=== PATIENT | male | born 1960 | race Caucasian/White ===

== ENCOUNTER 2016-05-29 15:58 | Emergency (ER) | payer OTHER ==
[~2016-05-29] VITALS: Ht 175.3 cm; Wt 115.0 kg
[~2016-05-29 15:58] MED LIST: DEPA500T3 PO; FOLI1 PO; IBUP800T23 PO; METF500 PO; OLAN5 PO; THIA100T PO
[2016-05-29 16:00] VITALS: BP 137/88; PULSE 106; RESP 16; TEMP 98.4; O2SAT 95
[2016-05-29 17:39] LABS: AUTOMATED NEUTROPHIL # 3.8 TH/MM3 (1.8-7.7); BASOPHIL # 0.1 TH/MM3 (0-0.2); EOSINOPHIL # 0.2 TH/MM3 (0-0.4); EOSINOPHIL % 2.7 % (0.0-4.0); HEMATOCRIT 39.3 % (39.0-51.0); HEMO FLAGS AUTO DIFF; LYMPH % 0.6 % (9.0-44.0); MEAN CELL VOLUME 107.4 FL (80.0-100.0); MEAN CORPUSCULAR HEMOGLOBIN 37.4 PG (27.0-34.0); MEAN CORPUSCULAR HGB CONC 34.9 % (32.0-36.0); MONO % 42.3 % (0.0-8.0); NEUT % 53.4 % (16.0-70.0); PLATELET COUNT 170 TH/MM3 (150-450); RED BLOOD COUNT 3.66 MIL/MM3 (4.50-5.90); RED CELL DISTRIBUTION WIDTH 15.2 % (11.6-17.2); WHITE BLOOD COUNT 7.2 TH/MM3 (4.0-11.0)
[2016-05-29 18:12] LABS: ALKALINE PHOSPHATASE 91 U/L (45-117); TOTAL BILIRUBIN ADULT 0.3 MG/DL (0.2-1.0)
[2016-05-29 18:17] LABS: BANDS 1 % (0-6); BASOPHILS 1 % (0-2); CORRECTED NUCLEATED RBC 1 /100 WBC (0-0); EOSINOPHILS 4 % (0-4); METAMYELOCYTES 1 % (0-1); MYELOCYTES 1 % (0-0); NEUTROPHIL # MANUAL DIFF 4.9 TH/MM3 (1.8-7.7); PLATELET ESTIMATE SMEAR NORMAL (NORMAL); PLATELET MORPHOLOGY NORMAL (NORMAL); POLYS (SEG NEUTROPHILS) 65 % (16-70); SCAN/DIFF FINAL DIFF MANUAL; TOXIC GRANULATION 1+ (NORMAL); WBC DIFF SAMPLE 100
[2016-05-29 18:18] LABS: ALT (GPT) 30 U/L (12-78); ANION GAP 15 MEQ/L (5-15); AST (GOT) 22 U/L (15-37); BICARBONATE 21.1 MEQ/L (21.0-32.0); BLOOD UREA NITROGEN 11 MG/DL (7-18); CHLORIDE 104 MEQ/L (98-107); GLOMERULAR FILTRATION RATE 103 ML/MIN (>89); POTASSIUM 3.8 MEQ/L (3.5-5.1); SODIUM (NA) 140 MEQ/L (136-145)
[2016-05-29 19:00] LABS: AMPHETAMINE, URINE NEG (NEG); BARBITURATES, URINE NEG (NEG); COCAINE, URINE NEG (NEG)
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
[2016-05-29 22:44] VITALS: BP 179/99; PULSE 93; RESP 18; TEMP 97.5; O2SAT 96
[2016-05-30 03:09] VITALS: BP 134/95; PULSE 89; RESP 18; TEMP 97.8; O2SAT 98
[2016-06-20] MEDS ORDERED: DIVA250T3 PO (08:56)
[2016-06-20] MEDS ORDERED: OLAN7.5T PO (08:56)
[2016-06-20] MEDS ORDERED: HYDR-3583 PO (08:56)
[2016-06-20] MEDS ORDERED: SERT-129 PO (08:56)
[2016-06-20] MEDS ORDERED: AMOX500C PO (08:56)
[2016-06-20] MEDS ORDERED: HYDR50CA PO ×2 (08:56→09:09)
[2016-06-20] MEDS ORDERED: ATOR10TA15 PO (09:09)
[2016-06-20] MEDS ORDERED: OLAN5TAB PO (09:09)
[2016-06-27] MEDS ORDERED: INSU-171 (15:12)
[2016-06-27] MEDS ORDERED: LANTUS2P SQ (15:12)
[2016-06-27] MEDS ORDERED: METF850T PO (15:12)
[2016-06-27] MEDS ORDERED: DULO1CAP PO (15:12)
[2016-07-12] MEDS ORDERED: CYAN1LOZ BUCCAL (09:56)
[2016-08-19] MEDS ORDERED: METF1000 PO (12:22)
[2016-08-19] MEDS ORDERED: IPRAAER INH (12:22)
[2016-08-19] MEDS ORDERED: LANTUS2P SQ (12:22)
[2016-09-11] MEDS ORDERED: CYAN1000P IM (14:34)
[2016-09-11] MEDS ORDERED: SITA1TAB2 PO (15:13)
[2016-09-11] MEDS ORDERED: ATOR20TA15 PO (15:13)
[2016-09-25] MEDS ORDERED: LANTUS2P SQ (13:31)
[2016-10-10] MEDS ORDERED: LANTUS2P SQ (13:15)
[2016-10-25] MEDS ORDERED: INSU-150 (13:03)
[2016-10-25] MEDS ORDERED: LANTUS2P SQ (13:20)
[2016-10-25] MEDS ORDERED: IPRAAER INH (13:37)
[2016-10-31] MEDS ORDERED: CANA100T PO (13:29)
[2016-10-31] MEDS ORDERED: LANTUS2P SQ (13:29)
[2016-11-06] MEDS ORDERED: CYAN1000P IM (13:37)
[2016-11-06] MEDS ORDERED: CANA300T PO (13:37)
[2016-11-06] MEDS ORDERED: LANTUS2P SQ (13:37)
[2016-11-06] MEDS ORDERED: INSU1MIS15 (13:37)
[2016-11-06] MEDS ORDERED: CELE100C PO (13:42)
[2016-11-06] MEDS ORDERED: SALM50I INH (13:46)
== END 2016-05-30 05:19 ==
LOC: NEDAMB 15:58 → NEPJ 05-30 05:19
DX: F31.9 Bipolar disorder, unspecified (principal); F41.8 Other specified anxiety disorders; Z72.0 Tobacco use; Z86.73 Personal history of transient ischemic attack (TIA), and cerebral infarction without residual deficits
CPT/HCPCS: 80053; 80307; 80320; 85007; 85027; 99285

== ENCOUNTER 2016-11-18 13:38 | Inpatient (IN) | payer MEDICAID, OTHER ==
[~2016-11-18] VITALS: Ht 172.7 cm; Wt 121.3 kg
[~2016-11-18 13:38] MED LIST changes: +ATOR20TA15 PO; +CANA300T PO; +CELE100C PO; +CYAN1000P IM; -DEPA500T3 PO; +DIVA250T3 PO; +DULO1CAP PO; -FOLI1 PO; +HYDR50CA PO; -IBUP800T23 PO; +INSU-150; +INSU1MIS15; +LANTUS2P SQ; +METF1000 PO; -METF500 PO; -OLAN5 PO; +SALM50I INH; +SERT-129 PO; -THIA100T PO
[2016-11-18 13:40] VITALS: BP 152/96; PULSE 95; RESP 20; TEMP 97.9; O2SAT 97
--- NOTE | 2016-11-18 14:55 | PD ---
Physical Exam Time Seen by Provider: 14:51 Narrative 56yo M c/o SI and HI. Sent by Justin Resendiz for evaluation. Hx PTSD. Reports heavy alcohol use for the past 2-3 weeks. Says he was going to shoot himself in the head last night but could not find the bullets, so drank so much alcohol he passed out. Patient seen in triage. Awaiting bed placement. VS reviewed. Data Data Last Documented VS Vital Signs Date Time Temp Pulse Resp B/P Pulse Ox O2 Delivery O2 Flow Rate FiO2 11/18/16 13:40 97.9 95 20 152/96 97 Room Air MDM Supervised Visit with NORMAN: Krystal Cowart Nov 18, 2016 14:55
[2016-11-18 15:31] LABS: BASOPHIL % 0.7 % (0.0-2.0); EOSINOPHIL # 0.4 TH/MM3 (0-0.4); EOSINOPHIL % 5.1 % (0.0-4.0); HEMATOCRIT 43.8 % (39.0-51.0); HEMO FLAGS DIFF FINAL; LYMPH % 30.7 % (9.0-44.0); LYMPHOCYTE # 2.1 TH/MM3 (1.0-4.8); MEAN CELL VOLUME 99.8 FL (80.0-100.0); MEAN CORPUSCULAR HEMOGLOBIN 33.9 PG (27.0-34.0); MONO % 6.3 % (0.0-8.0); NEUT % 57.2 % (16.0-70.0); PLATELET COUNT 158 TH/MM3 (150-450); RED BLOOD COUNT 4.39 MIL/MM3 (4.50-5.90); RED CELL DISTRIBUTION WIDTH 14.9 % (11.6-17.2)
[2016-11-18 15:33] LABS: AMPHETAMINE, URINE NEG (NEG); BARBITURATES, URINE NEG (NEG); COCAINE, URINE NEG (NEG)
[2016-11-18 15:53] LABS: ANION GAP 12 MEQ/L (5-15); AST (GOT) 23 U/L (15-37); BICARBONATE 23.1 MEQ/L (21.0-32.0); BLOOD UREA NITROGEN 13 MG/DL (7-18); CHLORIDE 101 MEQ/L (98-107); GLOMERULAR FILTRATION RATE 81 ML/MIN (>89); POTASSIUM 3.6 MEQ/L (3.5-5.1); SODIUM (NA) 136 MEQ/L (136-145)
[2016-11-18 15:55] LABS: ALKALINE PHOSPHATASE 107 U/L (45-117); ALT (GPT) 36 U/L (12-78); TOTAL BILIRUBIN ADULT 0.4 MG/DL (0.2-1.0)
[2016-11-18 18:52] VITALS: BP 151/76; PULSE 92; RESP 20; O2SAT 97
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
[2016-11-18] MEDS ORDERED: INSULIN HUMAN REGULAR 1,000 UNITS/10 ML VIAL SQ ONE (19:30)
[2016-11-18] MEDS ORDERED: LANTUS2P SQ (19:37)
[2016-11-18 22:00] VITALS: BP 181/96; PULSE 92; RESP 20; TEMP 96.7; O2SAT 96
[2016-11-19 02:00] VITALS: BP 114/63; PULSE 78; RESP 18; TEMP 97.5; O2SAT 96
[2016-11-19] MEDS ORDERED: ACETAMINOPHEN 325 MG TAB PO PRN ×2 (03:00→15:45)
[2016-11-19] MEDS ORDERED: diphenhydrAMINE HCL 50 MG/ML VIAL IM PRN (03:00)
[2016-11-19] MEDS ORDERED: MAGNESIUM HYDROXIDE SUSP 30 ML CUP PO PRN ×2 (03:00→15:45)
[2016-11-19] MEDS ORDERED: diphenhydrAMINE HCL 50 MG CAP PO PRN (03:00)
[2016-11-19] MEDS ORDERED: ALUMINUM/MAGNESIUM/SIMETH 30 ML CUP PO PRN ×2 (03:00→15:45)
[2016-11-19] MEDS ORDERED: diphenhydrAMINE HCL 50 MG CAP - HS PRN PO (03:00)
[2016-11-19] MEDS ORDERED: diphenhydrAMINE HCL 50 MG/ML VIAL - HS PRN IM (03:00)
[2016-11-19] MEDS ORDERED: hydrOXYzine HCL 50 MG TAB PO PRN (03:00)
[2016-11-19 05:40] VITALS: BP 130/80; PULSE 84; RESP 20; TEMP 97; O2SAT 96
[2016-11-19] MEDS: INVOKANA 300 MG PO SCH (07:00)
[2016-11-19] MEDS: NICOTINE 21 MG/24 HR PATCH T-DERMAL SCH (09:00)
[2016-11-19] MEDS: INSULIN DETEMIR 100 UNITS/ML VIAL SQ SCH ×2 (09:00→20:46)
[2016-11-19] MEDS ORDERED: DEXTROSE 50% IN WATER 50 ML VIAL(D50) IV PRN (14:00)
[2016-11-19] MEDS ORDERED: GLUCAGON 1 MG/ML VIAL OTHER PRN (14:00)
[2016-11-19 15:30] VITALS: BP 137/84; PULSE 82; RESP 18; TEMP 96.9; O2SAT 93
[2016-11-19] MEDS ORDERED: NON-FORMULARY DRUG (Canagliflozin (Invokana) 300 MG) PO SCH (15:45)
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
[2016-11-19] MEDS: INSULIN ASPART SUPPLEMENTAL SCALE SQ SCH ×2 (16:09→20:47)
--- NOTE | 2016-11-19 16:59 | PD.CONS ---
HPI Service [place] [facility] Consult Requested By Psychiatry team Reason for Consult Medical management Primary Care Physician Maura Gómez MD Diagnoses: History of Present Illness Written by Nelia Clemente, acting as scribe for Dr. Berger on 11/19/16 at 16: 36. Patient is a 56-year-old male with primary medical history of DM 2, hypertension, chronic back pain, depression, anxiety, COPD came into the hospital for suicidal ideation evaluation. Patient states that for about several years now he has been low and depressed and has previously attempted to jump off the bridge and commit suicide. States that 32 years has been struggling with depression because all of his love ones have and recently about a year ago he was in a relationship and the person . This time he thought of killing himself by drinking alcohol to have courage. He took vodka and got his friend's garden which he knew it was loaded hold that under his chin but the moment he pulled the trigger it did not go off. He started to realize that he needs to help so he went to see his psychologist/counselor which convinced him to admit himself for inpatient psychiatry. He is admitted to inpatient psychiatry for further evaluation. Consulted for medical management. Patient seen and examined today. Reports he continues to be depressed and feeling low. States he has been drinking half a gallon of vodka because he states "they say this can worsen his organs more, make him sicker." Complaints of acid reflux, midepigastric pain, aggravated by palpation, nonradiating. Also complains of shortness of breath especially when laying down , states that he hasn't have his inhalers right now that he used to have prior to being admitted. He takes it twice a day but cannot remember the name. Patient reports hallucination seeing a white woman who talks to him in his mind but doesn't talk in person. States he feels like cold air when the woman appears. Otherwise, denies chest pain, palpitations, headaches, dizziness. Denies fevers, chills, n/v/d. Denies dysuria. Review of Systems Except as stated in HPI: all other systems reviewed are Neg Past Family Social History Allergies: Coded Allergies: Chicken Meat (Verified Adverse Reaction, Severe, Nausea/Vomiting, 11/19/16) White Fish (Verified Adverse Reaction, Severe, Nausea/Vomiting, 11/19/16) PATIENT STATES "FISH" UPSETS HIS STOMACH. NAUSEA AND VOMITING. PATIENT STATES NOT ALLERGIC TO CHICKEN, TURKEY OR FISH SIDE EFFECT FROM EATING IT. [place] (Verified Adverse Reaction, Unknown, Nausea/Vomiting, 11/19/16) Past Medical History Diabetes 2 HTN Chronic back pain Depression Anxiety Bipolar COPD Past Surgical History Left eye surgery secondary to trauma Reported Medications Reported Meds & Active Scripts Active Serevent Diskus Inh (Salmeterol Xinafoate) 50 Mcg/Act Aero 50 Mcg INH BID Celebrex (Celecoxib) 100 Mg Cap 100 Mg PO BID Invokana (Canagliflozin) 300 Mg Tab 300 Mg PO DAILY Take before 1st meal of day. Cyanocobalamin Inj (Cyanocobalamin) 1,000 Mcg/Ml Inj 1,000 Mcg IM MONTHLY Reported Lantus Inj (Insulin Glargine) 1,000 Unit/10 Ml Vial 25 Units SQ BID Active Ordered Medications Current Medications Medications (Trade) Dose Ordered Sig/Grzegorz Route Start Time Stop Time Status Last Admin Patient Own Medication PT OWN MED: INVOK... DAILY@07 PO 11/19/16 07:00 (Atarax) 50 mg Q6H PRN PO 11/19/16 03:00 (Benadryl) 50 mg Q6H PRN PO 11/19/16 03:00 (Benadryl Inj) 50 mg Q6H PRN IM 11/19/16 03:00 (Benadryl) 50 mg HS PRN PO 11/19/16 03:00 (Benadryl Inj) 50 mg HS PRN IM 11/19/16 03:00 (Tylenol) 650 mg Q4H PRN PO 11/19/16 03:00 (Milk Of Magnesia Liq) 30 ml DAILY PRN PO 11/19/16 03:00 (Mag-Al Plus Susp Liq) 30 ml Q6H PRN PO 11/19/16 03:00 (Habitrol 21 Mg Patch.24 Hr) 1 patch DAILY T-DERMAL 11/19/16 09:00 Miscellaneous Information 1 HS T-DERMAL 11/19/16 21:00 (Levemir Inj) 25 units BID SQ 11/19/16 09:00 11/19/16 09:00 (D50w (Vial) Inj) 50 ml UNSCH PRN IV 11/19/16 14:00 (Glucagon Inj) 1 mg UNSCH PRN OTHER 11/19/16 14:00 (CeleBREX) 100 mg BID PO 11/19/16 21:00 (Serevent Diskus Inh) 50 mcg BID INH 11/19/16 21:00 (Depakote Er) 500 mg BID PO 11/19/16 21:00 (ZyPREXA) 5 mg HS PO 11/19/16 21:00 Family History Mother is suicidal Social History Patient lives with 2 women as roommates, on disability Reports alcohol use half a gallon of vodka every other week Smokes half a pack per day, restarted smoking 3 weeks ago. Denies illicit drug use Physical Exam Vital Signs Vital Signs Date Time Temp Pulse Resp B/P Pulse Ox O2 Delivery O2 Flow Rate FiO2 11/19/16 15:30 96.9 82 18 137/84 93 11/19/16 05:40 97.0 84 20 130/80 96 11/19/16 02:00 97.5 78 18 114/63 96 Room Air 11/18/16 22:00 96.7 92 20 181/96 96 Room Air 11/18/16 18:52 92 20 151/76 97 Room Air Physical Exam GENERAL: This is a well-nourished, well-developed patient, in no apparent distress. SKIN: No rashes, ecchymoses or lesions. Warmand dry. HEAD: Normocephalic. No temporal or scalp tenderness. EYES: Pupils equal round and reactive. Extraocular motions intact. No scleral icterus. No injection or drainage. ENT: Nose without bleeding. Throat without erythema. Uvula midline. Airway patent. NECK: Trachea midline. No JVD or lymphadenopathy. CARDIOVASCULAR: Regular rate and rhythm without murmurs, gallops, or rubs. RESPIRATORY: Diminished bases. No wheezes, rales, or rhonchi. GASTROINTESTINAL: Abdomen soft, non-tender, nondistended. Bowel sounds active 4 MUSCULOSKELETAL: Extremities without clubbing, cyanosis, or edema. No joint tenderness, effusion, or edema noted. No calf tenderness. Negative Homans sign bilaterally. NEUROLOGICAL: Awake and alert. Oriented to person, place, time. Motor and sensory grossly within normal limits. Normal speech. Result Diagram: 6/26/17 1510 6/26/17 1510 Assessment and Plan Problem List: (1) COPD (chronic obstructive pulmonary disease) ICD Code: J44.9 Status: Chronic (2) Chronic low back pain ICD Code: M54.5 Status: Chronic (3) Depression with suicidal ideation ICD Code: F32.9 Status: Acute (4) Hyperlipidemia, unspecified ICD Code: E78.5 Status: Chronic (5) Alcohol abuse, unspecified ICD Code: F10.10 Status: Chronic (6) Type 2 diabetes mellitus with peripheral vascular disease ICD Code: E11.51 Status: Chronic Assessment and Plan Patient is a 56-year-old male with primary medical history of DM 2, hypertension, chronic back pain, depression, anxiety, COPD came into the hospital for suicidal ideation evaluation. Patient states that for about several years now he has been low and depressed and has previously attempted to jump off the bridge and commit suicide. States that 32 years has been struggling with depression because all of his love ones have and recently about a year ago he was in a relationship and the person . This time he thought of killing himself by drinking alcohol to have courage. He took vodka and got his friend's garden which he knew it was loaded hold that under his chin but the moment he pulled the trigger it did not go off. He started to realize that he needs to help so he went to see his psychologist/counselor which convinced him to admit himself for inpatient psychiatry. He is admitted to inpatient psychiatry for further evaluation. Consulted for medical management. Depression, anxiety, suicidal ideation - Managed by psychiatry team COPD, not in exacerbation - Continue Serevent BID, Ventolin PRN - Monitor respiratory status DM 2 - Restart Lantus, convert the Levemir - May restart on home medication Invokana may skip this if the patient doesn 't have it. May continue use of Invokana when he goes home. - Metformin 1000mg BID - Check hemoglobin A1c. Monitor BG levels. Monitor for hypoglycemia. Chronic back pain - Continue Celebrex HTN, history - Not on any medication. - If BP elevation noted patient may start on low-dose lisinopril 10 mg daily. - Monitor BP trend - Check lipid panel Tobacco abuse - Counseled. Willing to stop smoking. - Nicotine patch Alcohol abuse Dyspepsia, GERD - Counseled on alcohol use - Monitor for withdrawals, Ativan when necessary - Pantoprazole 40 mg daily DVT prop ambulatory Thank you for this consultation. We will follow patient with you. Code Status Full code Discussed Condition With Patient, nursing This note was transcribed by kenrick Clemente. I, Dr. Baljinder Berger personally performed the history, physical exam, and medical decision making; and confirmed the accuracy of the information in the transcribed note. Authenticated by Dr. Baljinder Berger on 11/19/16 at 16:36. Nelia Dalton Nov 19, 2016 16:59 Baljinder Berger DO Nov 19, 2016 17:41
[2016-11-19] MEDS ORDERED: ALBUTEROL SULFATE 90 MCG/ACT HFA 8 GM INHALER INH PRN (17:30)
[2016-11-19] MEDS ORDERED: ALBUTEROL SULFATE 90 MCG/ACT HFA 18 GM INHALER INH PRN (18:15)
[2016-11-19] MEDS: PANTOPRAZOLE SOD 40 MG DELAYED RELEASE TAB PO SCH (18:28)
[2016-11-19] MEDS: metFORMIN HCL 500 MG TAB PO SCH (18:28)
[2016-11-19] MEDS: OLANZapine 5 MG TAB PO SCH (20:42)
[2016-11-19] MEDS: DIVALPROEX SODIUM E.R. 500 MG TAB PO SCH (20:42)
[2016-11-19] MEDS: REMOVE OLD NICOTINE PATCH T-DERMAL SCH (20:50)
[2016-11-19] MEDS ORDERED: INSULIN DETEMIR 100 UNITS/ML VIAL SQ SCH (21:00)
[2016-11-19] MEDS: SALMETEROL XINAFOATE 50 MCG DISKUS INH SCH (21:29)
[2016-11-19] MEDS: CELECOXIB 100 MG CAP PO SCH (21:29)
[2016-11-20 05:43] VITALS: BP 104/64; PULSE 82; RESP 16; O2SAT 99
[2016-11-20] MEDS: INSULIN ASPART SUPPLEMENTAL SCALE SQ SCH ×4 (06:29→21:56)
[2016-11-20 06:53] VITALS: TEMP 98.1
[2016-11-20] MEDS: INVOKANA 300 MG PO SCH (07:00)
[2016-11-20 08:51] LABS: AUTOMATED NEUTROPHIL # 3.3 TH/MM3 (1.8-7.7); BASOPHIL % 0.5 % (0.0-2.0); EOSINOPHIL # 0.3 TH/MM3 (0-0.4); EOSINOPHIL % 5.3 % (0.0-4.0); HEMATOCRIT 42.7 % (39.0-51.0); HEMO FLAGS DIFF FINAL; LYMPH % 32.1 % (9.0-44.0); LYMPHOCYTE # 1.9 TH/MM3 (1.0-4.8); MEAN CELL VOLUME 99.2 FL (80.0-100.0); MEAN CORPUSCULAR HEMOGLOBIN 34.3 PG (27.0-34.0); MEAN CORPUSCULAR HGB CONC 34.6 % (32.0-36.0); MONO % 5.7 % (0.0-8.0); NEUT % 56.4 % (16.0-70.0); PLATELET COUNT 148 TH/MM3 (150-450); RED CELL DISTRIBUTION WIDTH 14.7 % (11.6-17.2); WHITE BLOOD COUNT 5.9 TH/MM3 (4.0-11.0)
[2016-11-20] MEDS: NICOTINE 21 MG/24 HR PATCH T-DERMAL SCH (09:00)
--- NOTE | 2016-11-20 09:54 | PD.CONS ---
Provisional Diagnosis Admission Date Nov 19, 2016 at 02:41 [place] I. 1. Schizoaffective disorder, bipolar type [place] II. Deferred [place] V. GAF is 30 presently History of Present Illness Service Psychiatry Consult Requested By Dr. Tsang Reason for Consult Second opinion Primary Care Physician Maura Gómez MD HPI From Dr. Tsang's H&P: Patient is a 56-year-old white male comes here under [place]olan act signed by Jakob Roth at [facility] dated November 18 10:15 PM the document reviewed and agreed with basically stating patient had intention of using a gun to shoot kill himself without treatment may attempt self harm. Patient seen screened in the ED urine toxicology negative blood alcohol level negative. Of interest the patient was hospitalized here in January [address] Crane the diagnosis of adjustment disorder, impulse control disorder, and discharged on Depakote and Zyprexa. Since then the patient has been homeless for a period of time noncompliant with medications. He states he had a difficult time paying for his medications. He more recently was seen by clinician at [facility] emission the thoughts of suicide the increased auditory or visual hallucinations of multiple different people. That clinician felt he needed inpatient hospitalization and patient was transferred to this facility. Patient sitting quietly in his room medical student Hansel present throughout session. Patient did remember me from prior contact. [place]. He does have some insight into his need for stabilization on his medication though is doing so rationalization related to his issues. He states he had said episode of some increase alcohol abuse last drink being about 3 or 4 days ago. Those vital signs are stable. At the present time patient meets criteria for involuntary psychiatric hospitalization I will do first opinion requests second.. I feel is capacity to sign for his medications and is willing to do that. We will the hospitalist consult was related to his diabetes no medical issues. We'll continue medication per the med reconciliation adding Depakote 500 mg twice a day and Zyprexa 5 mg at at bedtime. Hopeless to be fairly short stay turned to his home to follow-up outpatient [facility] act On my examination today: Patient seen and examined with nurse. Chart reviewed. Case discussed with nursing staff. On my examination today, the patient reports chronic suicidal ideation worse over the last year or so. He says that he has been drinking heavily in the last 3 weeks in the hopes that this will end his life. He says that recently he has been contemplating shooting himself with his friend's gun. He endorses auditory hallucinations conversing with each other although he does not describe any command auditory hallucinations. No delusions. Affect dysphoric. No hypomanic or manic symptoms. The remainder of the psychiatric ROS is negative. Past psychiatric history: Patient reports a history of schizoaffective disorder. He follows at [facility]. His most recent psychiatric admission was at [facility]. He endorses a history of suicide attempts by trying to jump off of a bridge. Family history: The patient reports a history of depression in his mother. Chemical dependency history: The patient endorses a history of abuse of drugs or alcohol. Social history: The patient reports that he is . He has no children. He has an eighth grade education. He reports that his disability income has recently initiated. Review of Systems ROS Limitations: Psychotic Except as stated in HPI: all other systems reviewed are Neg Past Family Social History Coded Allergies: Chicken Meat (Verified Adverse Reaction, Severe, Nausea/Vomiting, 11/19/16) White Fish (Verified Adverse Reaction, Severe, Nausea/Vomiting, 11/19/16) PATIENT STATES "FISH" UPSETS HIS STOMACH. NAUSEA AND VOMITING. PATIENT STATES NOT ALLERGIC TO CHICKEN, TURKEY OR FISH SIDE EFFECT FROM EATING IT. [place] (Verified Adverse Reaction, Unknown, Nausea/Vomiting, 11/19/16) Past Medical History See electronic medical record Active Scripts Salmeterol Inh (Serevent Diskus Inh)50 Mcg/Act Aero50 Mcg INH BID #1 INHALER Ref 2 Prov:Maura Gómez MD 11/06/16 Celecoxib (Celebrex)100 Mg Tea898 Mg PO BID #30 CAP Ref 0 Prov:Maura Gómez MD 11/06/16 Canagliflozin (Invokana)300 Mg Ile114 Mg PO DAILY #30 TAB Ref 3 Take before 1st meal of day. Prov:Maura Gómez MD 11/06/16 Cyanocobalamin Inj 1,000 Mcg/Ml Inj1,000 Mcg IM MONTHLY #1 VIAL Ref 3 Prov:Maura Gómez MD 11/06/16 Reported Medications Insulin Glargine Inj (Lantus Inj)1,000 Unit/10 Ml Vial25 Units SQ BID Ref 0 11/18/16 Discontinued Reported Medications Hydroxyzine Pamoate 50 Mg Cap50 Mg PO HS Ref 0 06/20/16 Divalproex ER 250 Mg Shzmg535 Mg PO DAILY #30 TAB Ref 0 06/20/16 Sertraline 100 Mg Xsy975 Mg PO DAILY #30 TAB Ref 0 06/20/16 Discontinued Scripts Insulin Glargine Inj (Lantus Inj)1,000 Unit/10 Ml Vial35 Units SQ BID #1 VIAL Ref 1 Prov:Maura Gómez MD 11/06/16 Atorvastatin 20 Mg Tab20 Mg PO HS #30 TAB Ref 3 Prov:Maura Gómez MD 09/11/16 Metformin 1,000 Mg Tab1,000 Mg PO BIDPC #60 TAB Ref 2 With meals Prov:Maura Gómez MD 08/19/[address] 20 Mg Capdr20 Mg PO DAILY #30 CAP Ref 0 Prov:Maura Gómez MD 06/27/16 Current Medications Medications (Trade) Dose Ordered Sig/Grzegorz Route Start Time Stop Time Status Last Admin Patient Own Medication PT OWN MED: INVOK... DAILY@07 PO 11/19/16 07:00 (Atarax) 50 mg Q6H PRN PO 11/19/16 03:00 (Benadryl) 50 mg Q6H PRN PO 11/19/16 03:00 (Benadryl Inj) 50 mg Q6H PRN IM 11/19/16 03:00 (Benadryl) 50 mg HS PRN PO 11/19/16 03:00 11/19/16 21:29 (Benadryl Inj) 50 mg HS PRN IM 11/19/16 03:00 (Tylenol) 650 mg Q4H PRN PO 11/19/16 03:00 (Milk Of Magnesia Liq) 30 ml DAILY PRN PO 11/19/16 03:00 (Mag-Al Plus Susp Liq) 30 ml Q6H PRN PO 11/19/16 03:00 (Habitrol 21 Mg Patch.24 Hr) 1 patch DAILY T-DERMAL 11/19/16 09:00 Miscellaneous Information 1 HS T-DERMAL 11/19/16 21:00 (Levemir Inj) 25 units BID SQ 11/19/16 09:00 11/19/16 20:46 (D50w (Vial) Inj) 50 ml UNSCH PRN IV 11/19/16 14:00 (Glucagon Inj) 1 mg UNSCH PRN OTHER 11/19/16 14:00 (CeleBREX) 100 mg BID PO 11/19/16 21:00 11/19/16 21:29 (Serevent Diskus Inh) 50 mcg BID INH 11/19/16 21:00 11/19/16 21:29 (Depakote Er) 500 mg BID PO 11/19/16 21:00 11/19/16 20:42 (ZyPREXA) 5 mg HS PO 11/19/16 21:00 11/19/16 20:42 (Glucophage) 1,000 mg BIDPC PO 11/19/16 18:00 11/19/16 18:28 (Protonix) 40 mg DAILY PO 11/19/16 17:30 12/03/16 17:29 11/19/16 18:28 (Ventolin Hfa Inh) 2 puff Q6H PRN INH 11/19/16 18:15 Patient's Strengths (min. 2) In a monitored setting. Verbally fluent. Physical Exam Physical examination completed by hospitalist. On my examination today, the patient appears to be in no acute physical distress. No motor abnormalities noted. Labs and vital signs reviewed: Vital Signs Vital Signs Date Time Temp Pulse Resp B/P Pulse Ox O2 Delivery O2 Flow Rate FiO2 11/20/16 06:53 98.1 11/20/16 05:43 82 16 104/64 99 11/19/16 02:00 Room Air Lab Results Item Value Date Time White Blood Count 5.9 TH/MM3 11/20/16 0644 Hemoglobin 14.8 GM/DL 11/20/16 0644 Platelet Count 148 TH/MM3 L 11/20/16 0644 Sodium Level 138 MEQ/L 11/20/16 0644 Potassium Level 3.6 MEQ/L 11/20/16 0644 Chloride Level 101 MEQ/L 11/20/16 0644 Carbon Dioxide Level 25.8 MEQ/L 11/20/16 0644 Blood Urea Nitrogen 15 MG/DL 11/20/16 0644 Creatinine 0.74 MG/DL 11/20/16 0644 Aspartate Amino Transf (AST/SGOT) 32 U/L 11/20/16 0644 Alanine Aminotransferase (ALT/SGPT) 39 U/L 11/20/16 0644 Alkaline Phosphatase 94 U/L 11/20/16 0644 Thyroid Stimulating Hormone 3rd Gen 4.890 uIU/ML H 11/20/16 0644 Urine Opiates Screen NEG 11/18/16 1510 Urine Barbiturates Screen NEG 11/18/16 1510 Urine Amphetamines Screen NEG 11/18/16 1510 Urine Benzodiazepines Screen NEG 11/18/16 1510 Urine Cocaine Screen NEG 11/18/16 1510 Urine Cannabinoids Screen NEG 11/18/16 1510 Ethyl Alcohol Level LESS THAN 3 MG/DL 11/18/16 1510 Mental Status Examination Speech: Unremarkable Orientation: x3 Memory: Unremarkable Thought Process: Linear Thought Content: Other (no delusions) Hallucination Type: Auditory Attention and Concentration: Other (fair) Suicidal Ideation: Yes Previous Suicide Attempts: Yes Homicidal Ideation: No Previous Homicide Attempts: No Insight: Poor Judgment: Poor Affect: Other (blunted and dysphoric) Mood: Other (depressed) Assessment & Plan Problem List: (1) Schizoaffective disorder ICD Code: F25.9 Assessment & Plan Given the circumstances of the patient's presentation here and his presentation on my examination today, I concur with Dr. Tsang that the patient meets criteria for involuntary psychiatric hospitalization under the Dolan act. I have completed the second opinion paperwork. Further care as per Dr. Tsang. Thank you very much for this consultation. Signing off. Request HC Surrog/Guard Advoc?: No Problem Qualifiers (1) Schizoaffective disorder: Qualified Code: F25.0 - Schizoaffective disorder, bipolar type Marty Crane MD Nov 20, 2016 09:54
[2016-11-20 10:03] LABS: ALKALINE PHOSPHATASE 94 U/L (45-117); ALT (GPT) 39 U/L (12-78); ANION GAP 11 MEQ/L (5-15); AST (GOT) 32 U/L (15-37); BICARBONATE 25.8 MEQ/L (21.0-32.0); BLOOD UREA NITROGEN 15 MG/DL (7-18); CHLORIDE 101 MEQ/L (98-107); GLOMERULAR FILTRATION RATE 110 ML/MIN (>89); HDL CHOLESTEROL 38.6 MG/DL (40.0-60.0); LDL CHOLESTEROL 110 MG/DL (0-99); POTASSIUM 3.6 MEQ/L (3.5-5.1); SODIUM (NA) 138 MEQ/L (136-145); TOTAL BILIRUBIN ADULT 0.4 MG/DL (0.2-1.0)
[2016-11-20] MEDS: SALMETEROL XINAFOATE 50 MCG DISKUS INH SCH ×2 (10:15→22:04)
[2016-11-20] MEDS: PANTOPRAZOLE SOD 40 MG DELAYED RELEASE TAB PO SCH (10:16)
[2016-11-20] MEDS: metFORMIN HCL 500 MG TAB PO SCH ×2 (10:16→18:09)
[2016-11-20] MEDS: CELECOXIB 100 MG CAP PO SCH ×2 (10:16→22:03)
[2016-11-20] MEDS: DIVALPROEX SODIUM E.R. 500 MG TAB PO SCH ×2 (10:16→22:03)
[2016-11-20] MEDS: INSULIN DETEMIR 100 UNITS/ML VIAL SQ SCH ×2 (10:17→21:53)
--- NOTE | 2016-11-20 13:39 | HHI.PYPN ---
Subjective Remarks Patient seen in his room with nurse Elizabeth, chart reviewed, patient compliant medications. Patient states she slept well last night, feels safe here and more relaxed. Denies suicidality at the present time. Distally feel patient does have the ability capacity to sign voluntary will lift Dolan act allow him to sign voluntary for now continue treatment Review of Systems Except as stated in HPI: all other systems reviewed are Neg Objective Alert: Yes [place]: Person, Place, Date, Situation Mood: Calm, Depressed Affect: Restricted Memory Intact: Comment (fair) Hallucinations: Other (denies) Delusions: No Delusion Type: Other (denies) Suicidal: Ideation (denies at this time) Homicidal: Ideation (denies) Insight/Judgment Poor Labs Test 11/20/16 06:44 White Blood Count 5.9 TH/MM3 Red Blood Count 4.30 MIL/MM3 Hemoglobin 14.8 GM/DL Hematocrit 42.7 % Mean Corpuscular Volume 99.2 FL Mean Corpuscular Hemoglobin 34.3 PG Mean Corpuscular Hemoglobin 34.6 % Concent Red Cell Distribution Width 14.7 % Platelet Count 148 TH/MM3 Mean Platelet Volume 8.0 FL Neutrophils (%) (Auto) 56.4 % Lymphocytes (%) (Auto) 32.1 % Monocytes (%) (Auto) 5.7 % Eosinophils (%) (Auto) 5.3 % Basophils (%) (Auto) 0.5 % Neutrophils # (Auto) 3.3 TH/MM3 Lymphocytes # (Auto) 1.9 TH/MM3 Monocytes # (Auto) 0.3 TH/MM3 Eosinophils # (Auto) 0.3 TH/MM3 Basophils # (Auto) 0.0 TH/MM3 CBC Comment DIFF FINAL Differential Comment Sodium Level 138 MEQ/L Potassium Level 3.6 MEQ/L Chloride Level 101 MEQ/L Carbon Dioxide Level 25.8 MEQ/L Anion Gap 11 MEQ/L Blood Urea Nitrogen 15 MG/DL Creatinine 0.74 MG/DL Estimat Glomerular Filtration 110 ML/MIN Rate Random Glucose 205 MG/DL Calcium Level 8.8 MG/DL Total Bilirubin 0.4 MG/DL Aspartate Amino Transf 32 U/L (AST/SGOT) Alanine Aminotransferase 39 U/L (ALT/SGPT) Alkaline Phosphatase 94 U/L Total Protein 6.3 GM/DL Albumin 3.2 GM/DL Triglycerides Level 324 MG/DL Cholesterol Level 213 MG/DL LDL Cholesterol 110 MG/DL HDL Cholesterol 38.6 MG/DL Cholesterol/HDL Ratio 5.51 RATIO Thyroid Stimulating Hormone 4.890 uIU/ML 3rd Gen Vitals/IOs Vital Signs Date Time Temp Pulse Resp B/P Pulse Ox O2 Delivery O2 Flow Rate FiO2 11/20/16 06:53 98.1 11/20/16 05:43 82 16 104/64 99 11/19/16 02:00 Room Air Assessment & Plan Problem List: (1) Schizoaffective disorder ICD Code: F25.9 Assessment & Plan Estimated LOS: days patient continues depressed though the suicidality is resolving. Compliant medications Justification for Cont. Inpt. At this time patient will decompensate if placed in a lower level of care Discharge Planning To be determined Request HC Surrog/Guard Advoc?: No Problem Qualifiers (1) Schizoaffective disorder: Qualified Code: F25.0 - Schizoaffective disorder, bipolar type Ashwin Tsang MD Nov 20, 2016 13:39
[2016-11-20 18:00] VITALS: BP 134/81; PULSE 97; RESP 18; TEMP 98.1; O2SAT 96
[2016-11-20] MEDS: OLANZapine 5 MG TAB PO SCH (21:00)
[2016-11-20] MEDS: REMOVE OLD NICOTINE PATCH T-DERMAL SCH (21:00)
[2016-11-20 21:25] LABS: HEMOGLOBIN A1a 0.9 %; HEMOGLOBIN A1b 2.7 %; HEMOGLOBIN LA1C 2.6 %; HEMOGLOBIN P3 4.6 %
--- NOTE | 2016-11-20 22:59 | EKG ---
Date Performed: 11/20/2016 Time Performed: 07:22:43 PTAGE: 56 years EKG: Sinus rhythm NONSPECIFIC T-WAVE ABNORMALITY BORDERLINE ECG PREVIOUS TRACING : 03/22/2016 10.15 Compared to prior tracing no significant change DOCTOR: Corey Greene Interpretating Date/Time 11/20/2016 22:58:15
[2016-11-21 05:54] VITALS: BP 140/79; PULSE 102; RESP 17; TEMP 98; O2SAT 97
[2016-11-21] MEDS: INSULIN ASPART SUPPLEMENTAL SCALE SQ SCH ×4 (06:50→21:00)
[2016-11-21] MEDS: INVOKANA 300 MG PO SCH (07:00)
[2016-11-21] MEDS: NICOTINE 21 MG/24 HR PATCH T-DERMAL SCH (09:00)
[2016-11-21] MEDS: CELECOXIB 100 MG CAP PO SCH ×2 (09:11→21:38)
[2016-11-21] MEDS: metFORMIN HCL 500 MG TAB PO SCH ×2 (09:11→17:20)
[2016-11-21] MEDS: PANTOPRAZOLE SOD 40 MG DELAYED RELEASE TAB PO SCH (09:11)
[2016-11-21] MEDS: DIVALPROEX SODIUM E.R. 500 MG TAB PO SCH ×2 (09:11→21:38)
[2016-11-21] MEDS: SALMETEROL XINAFOATE 50 MCG DISKUS INH SCH ×2 (09:12→21:38)
[2016-11-21] MEDS: INSULIN DETEMIR 100 UNITS/ML VIAL SQ SCH ×2 (09:17→21:43)
--- NOTE | 2016-11-21 15:29 | HHI.PYPN ---
Subjective Remarks Patient seen in [place] with medical student Hansel, chart review, patient compliant medication. She states she is feeling somewhat better this anxious and depressed. Though acknowledges persistence of his auditory hallucinations. States sleeping is also somewhat better. For now we will increase his Zyprexa to 5 mg twice a day Review of Systems Except as stated in HPI: all other systems reviewed are Neg Objective Alert: Yes [place]: Person, Place, Date, Situation Mood: Calm, Depressed Affect: Restricted Memory Intact: Comment (fair) Hallucinations: Other (denies) Delusions: No Delusion Type: Other (denies) Suicidal: Ideation (denies at this time) Homicidal: Ideation (denies) Insight/Judgment Poor Vitals/IOs Vital Signs Date Time Temp Pulse Resp B/P Pulse Ox O2 Delivery O2 Flow Rate FiO2 11/21/16 05:54 98.0 102 17 140/79 97 11/19/16 02:00 Room Air Intake and Output 11/20/16 11/20/16 11/20/16 07:59 15:59 23:59 Intake Total 240 ml Balance 240 ml Assessment & Plan Problem List: (1) Schizoaffective disorder ICD Code: F25.9 Assessment & Plan Estimated LOS: days patient improving somewhat for continue psychotic with auditory hallucinations. See medication adjustment above Justification for Cont. Inpt. At this time patient will decompensate the placed in a lower level of care Discharge Planning To be determined Request Surrog/Guard Advoc?: No Problem Qualifiers (1) Schizoaffective disorder: Qualified Code: F25.0 - Schizoaffective disorder, bipolar type Ashwin Tsang MD Nov 21, 2016 15:29
--- NOTE | 2016-11-21 15:59 | HHI.PR ---
Subjective Remarks Follow-up visit DM 2, HTN, depression, anxiety, COPD. Patient seen and examined today. Reports he is feeling better but it is to be depressed. Patient was seen drawing beautiful art work using pencil. Encourage participation with activities. He states that drawing is calming him down. Denies pain and discomfort. Denies SOB/ dyspnea. Denies chest pain, palpitations, headaches, dizziness. Denies fevers, chills, n/v/d. Denies dysuria. Objective Vitals Vital Signs Date Time Temp Pulse Resp B/P Pulse Ox O2 Delivery O2 Flow Rate FiO2 11/21/16 05:54 98.0 102 17 140/79 97 11/20/16 18:00 98.1 97 18 134/81 96 I/O 11/20/16 11/20/16 11/20/16 11/21/16 11/21/16 11/21/16 07:00 15:00 23:00 07:00 15:00 23:00 Intake Total 240 ml Balance 240 ml Intake Oral 240 ml Result Diagram: 11/20/16 0644 11/20/16 0644 Objective Remarks GENERAL: This is a well-nourished, well-developed patient, in no apparent distress. SKIN: No rashes, ecchymoses or lesions. Warmand dry. HEAD: Normocephalic. No temporal or scalp tenderness. EYES: Pupils equal round and reactive. Extraocular motions intact. No scleral icterus. No injection or drainage. ENT: Nose without bleeding. Throat without erythema. Uvula midline. Airway patent. NECK: Trachea midline. No JVD or lymphadenopathy. CARDIOVASCULAR: Regular rate and rhythm without murmurs, gallops, or rubs. RESPIRATORY: Diminished bases. No wheezes, rales, or rhonchi. GASTROINTESTINAL: Abdomen soft, non-tender, nondistended. Bowel sounds active 4 MUSCULOSKELETAL: Extremities without clubbing, cyanosis, or edema. No joint tenderness, effusion, or edema noted. NEUROLOGICAL: Awake and alert. Oriented to person, place, time. Motor and sensory grossly within normal limits. Normal speech A/P Problem List: (1) COPD (chronic obstructive pulmonary disease) ICD Code: J44.9 Status: Chronic (2) Chronic low back pain ICD Code: M54.5 Status: Chronic (3) Depression with suicidal ideation ICD Code: F32.9 Status: Acute (4) Hyperlipidemia, unspecified ICD Code: E78.5 Status: Chronic (5) Alcohol abuse, unspecified ICD Code: F10.10 Status: Chronic (6) Type 2 diabetes mellitus with peripheral vascular disease ICD Code: E11.51 Status: Chronic Assessment and Plan Patient is a 56-year-old male with primary medical history of DM 2, hypertension, chronic back pain, depression, anxiety, COPD came into the hospital for suicidal ideation evaluation. He is admitted to inpatient psychiatry for further evaluation. Consulted for medical management. Depression, anxiety, suicidal ideation - Managed by psychiatry team COPD, not in exacerbation - Continue Serevent BID, Ventolin PRN - Monitor respiratory status DM 2 - Lantus, convert the Levemir increased dose to 28units BID - May restart on home medication Invokana may skip this if the patient doesn' t have it. May continue use of Invokana when he goes home. - Metformin 1000mg BID - Hemoglobin A1c10.5. - Monitor BG levels. Monitor for hypoglycemia. Chronic back pain - Continue Celebrex HTN, history - Not on any medication. - If BP elevation noted patient may start on low-dose lisinopril 10 mg daily. - Monitor BP trend HLD - LDL C1 10, cholesterol 213 - ASCVD risk 10 year 14.6%, recommended high-intensity statin - Discussed with patient. Lifestyle changes including exercise and weight loss. - Will start atorvastatin 20 mg daily Tobacco abuse - Counseled. Willing to stop smoking. - Nicotine patch Alcohol abuse Dyspepsia, GERD - Counseled on alcohol use - Monitor for withdrawals, Ativan when necessary - Pantoprazole 40 mg daily DVT prop ambulatory Full code Discussed with patient, nursing Nelia Dalton Nov 21, 2016 15:59
[2016-11-21 18:00] VITALS: BP 135/83; PULSE 107; RESP 18; TEMP 98.8; O2SAT 97
[2016-11-21] MEDS: REMOVE OLD NICOTINE PATCH T-DERMAL SCH (21:00)
[2016-11-21] MEDS: OLANZapine 5 MG TAB PO SCH (21:38)
[2016-11-22] MEDS: INVOKANA 300 MG PO SCH (06:27)
[2016-11-22] MEDS: INSULIN ASPART SUPPLEMENTAL SCALE SQ SCH ×4 (06:27→20:14)
[2016-11-22] MEDS: SALMETEROL XINAFOATE 50 MCG DISKUS INH SCH ×2 (09:00→20:09)
[2016-11-22] MEDS: INSULIN DETEMIR 100 UNITS/ML VIAL SQ SCH ×2 (09:00→20:14)
[2016-11-22] MEDS: OLANZapine 5 MG TAB PO SCH ×2 (09:00→20:10)
[2016-11-22] MEDS: NICOTINE 21 MG/24 HR PATCH T-DERMAL SCH (09:00)
[2016-11-22] MEDS: CELECOXIB 100 MG CAP PO SCH ×2 (09:36→20:10)
[2016-11-22] MEDS: DIVALPROEX SODIUM E.R. 500 MG TAB PO SCH ×2 (09:36→20:10)
[2016-11-22] MEDS: PANTOPRAZOLE SOD 40 MG DELAYED RELEASE TAB PO SCH (09:36)
[2016-11-22] MEDS: metFORMIN HCL 500 MG TAB PO SCH ×2 (09:36→18:42)
[2016-11-22] MEDS: ATORVASTATIN 20 MG TAB PO SCH (09:36)
--- NOTE | 2016-11-22 16:01 | HHI.PYPN ---
Subjective Remarks Patient seen in his room with medical student Hansel. Patient calm cooperative states his depression is lifting and he is feeling better. His anxiety somewhat diminished also. For now continue treatment Review of Systems Except as stated in HPI: all other systems reviewed are Neg Objective Alert: Yes [place]: Person, Place, Date, Situation Mood: Calm, Depressed Affect: Restricted Memory Intact: Comment (fair) Hallucinations: Other (denies) Delusions: No Delusion Type: Other (denies) Suicidal: Ideation (denies at this time) Homicidal: Ideation (denies) Insight/Judgment Poor Vitals/IOs Vital Signs Date Time Temp Pulse Resp B/P Pulse Ox O2 Delivery O2 Flow Rate FiO2 11/21/16 18:00 98.8 107 18 135/83 97 11/19/16 02:00 Room Air Assessment & Plan Problem List: (1) Schizoaffective disorder ICD Code: F25.9 Assessment & Plan Estimated LOS: days patient calmer his depression is slowly lifting, he is more focused and reactive. Compliant medications. Justification for Cont. Inpt. This time patient will decompensate placed in a lower level of care Discharge Planning To be determined Request HC Surrog/Guard Advoc?: No Problem Qualifiers (1) Schizoaffective disorder: Qualified Code: F25.0 - Schizoaffective disorder, bipolar type Ashwin Tsang MD Nov 22, 2016 16:01
[2016-11-22 18:00] VITALS: BP 109/59; PULSE 103; RESP 18; TEMP 97.4; O2SAT 95
[2016-11-22] MEDS: REMOVE OLD NICOTINE PATCH T-DERMAL SCH (20:15)
[2016-11-23 06:11] VITALS: BP 120/72; PULSE 92; RESP 18; TEMP 97.6; O2SAT 95
[2016-11-23] MEDS: INSULIN ASPART SUPPLEMENTAL SCALE SQ SCH ×4 (06:29→20:31)
[2016-11-23] MEDS: INVOKANA 300 MG PO SCH (07:00)
[2016-11-23] MEDS: metFORMIN HCL 500 MG TAB PO SCH ×2 (08:44→16:38)
[2016-11-23] MEDS: ATORVASTATIN 20 MG TAB PO SCH (08:45)
[2016-11-23] MEDS: DIVALPROEX SODIUM E.R. 500 MG TAB PO SCH ×2 (08:45→20:32)
[2016-11-23] MEDS: CELECOXIB 100 MG CAP PO SCH ×2 (08:45→20:32)
[2016-11-23] MEDS: PANTOPRAZOLE SOD 40 MG DELAYED RELEASE TAB PO SCH (08:45)
[2016-11-23] MEDS: NICOTINE 21 MG/24 HR PATCH T-DERMAL SCH (08:46)
[2016-11-23] MEDS: OLANZapine 5 MG TAB PO SCH ×2 (08:46→20:32)
[2016-11-23] MEDS: SALMETEROL XINAFOATE 50 MCG DISKUS INH SCH ×2 (08:49→20:33)
[2016-11-23] MEDS: INSULIN DETEMIR 100 UNITS/ML VIAL SQ SCH ×2 (09:00→20:32)
--- NOTE | 2016-11-23 12:30 | HHI.PR ---
Subjective Remarks Patient in bed, sleepy. Says she has no nausea or vomiting. No diaphoresis. Says she feels his vision is getting blurry. Has palpitations and chest pain at times when feels anxious. No chest pain at this time. No n/v/d/c. Objective Vitals Vital Signs Date Time Temp Pulse Resp B/P Pulse Ox O2 Delivery O2 Flow Rate FiO2 11/23/16 06:11 97.6 92 18 120/72 95 11/22/16 18:00 97.4 103 18 109/59 95 Result Diagram: 11/20/1644 11/20/16643 Objective Remarks GENERAL: This is a well-nourished, well-developed patient, in no apparent distress. CARDIOVASCULAR: Regular rate and rhythm without murmurs, gallops, or rubs. RESPIRATORY: Diminished bases. No wheezes, rales, or rhonchi. GASTROINTESTINAL: Abdomen soft, non-tender, nondistended. Bowel sounds active 4 MUSCULOSKELETAL: Extremities without clubbing, cyanosis, or edema. No joint tenderness, effusion, or edema noted. NEUROLOGICAL: Awake and alert. Oriented to person, place, time. Motor and sensory grossly within normal limits. Normal speech A/P Problem List: (1) COPD (chronic obstructive pulmonary disease) ICD Code: J44.9 Status: Chronic (2) Chronic low back pain ICD Code: M54.5 Status: Chronic (3) Depression with suicidal ideation ICD Code: F32.9 Status: Acute (4) Hyperlipidemia, unspecified ICD Code: E78.5 Status: Chronic (5) Alcohol abuse, unspecified ICD Code: F10.10 Status: Chronic (6) Type 2 diabetes mellitus with peripheral vascular disease ICD Code: E11.51 Status: Chronic Assessment and Plan Patient is a 56-year-old male with primary medical history of DM 2, hypertension, chronic back pain, depression, anxiety, COPD came into the hospital for suicidal ideation evaluation. He is admitted to inpatient psychiatry for further evaluation. Consulted for medical management. DM 2, uncontrolled. A1c 10.5. Lantus, convert the Levemir increased dose to 30 units BID. BS in 200s. Monitor and adjust insulin as need. Restart on home medication Invokana may skip this if the patient doesn't have it. May continue use of Invokana when he goes home. Metformin 1000mg BID Hemoglobin A1c10.5. Monitor BG levels. Monitor for hypoglycemia. HTN, history. BP better., continue to monitor Not on any medication. If BP elevation noted patient may start on low-dose lisinopril Monitor BP trend HLD LDL C1 10, cholesterol 213 ASCVD risk 10 year 14.6%, recommended high-intensity statin Discussed with patient. Lifestyle changes including exercise and weight loss. Will start atorvastatin 20 mg daily COPD, not in exacerbation Continue Serevent BID, Ventolin PRN Monitor respiratory status Chronic back pain- Continue Celebrex Depression, anxiety, suicidal ideation Managed by psychiatry team Tobacco abuse Counseled. Willing to stop smoking. Nicotine patch Alcohol abuse Dyspepsia, GERD Counseled on alcohol use Monitor for withdrawals, Ativan when necessary Pantoprazole 40 mg daily DVT prop ambulatory Full code Discussed with patient, nurse Velvet Sullivan MD Nov 23, 2016 12:30
--- NOTE | 2016-11-23 14:38 | HHI.PYPN ---
Subjective Remarks Patient was seen and case discussed with nursing. Patient is pleasant and cooperative with exam. Behaving well per nursing. Complaining of vague auditory hallucinations that he cannot make out. Denies depressed mood. Denies suicidal ideation intent or plan. Compliant with medications Objective Alert: Yes [place]: Person, Place, Date, Situation Mood: Calm, Depressed Affect: Restricted Memory Intact: Comment (fair) Hallucinations: Other (denies) Delusions: No Delusion Type: Other (denies) Suicidal: Ideation (denies at this time) Homicidal: Ideation (denies) Insight/Judgment Fair Vitals/IOs Vital Signs Date Time Temp Pulse Resp B/P Pulse Ox O2 Delivery O2 Flow Rate FiO2 11/23/16 06:11 97.6 92 18 120/72 95 Assessment & Plan Problem List: (1) Schizoaffective disorder ICD Code: F25.9 Assessment & Plan Continue current treatment plan Justification for Cont. Inpt. Patient would decompensate in a less restrictive setting Request HC Surrog/Guard Advoc?: No Problem Qualifiers (1) Schizoaffective disorder: Qualified Code: F25.0 - Schizoaffective disorder, bipolar type Valdemar Espinoza DO Nov 23, 2016 14:38
[2016-11-23 18:15] VITALS: BP 130/69; PULSE 82; RESP 18; TEMP 96.9; O2SAT 97
[2016-11-23] MEDS: REMOVE OLD NICOTINE PATCH T-DERMAL SCH (20:37)
[2016-11-24 05:57] VITALS: BP 111/65; PULSE 95; RESP 16; TEMP 97.3; O2SAT 95
[2016-11-24] MEDS: INVOKANA 300 MG PO SCH (06:09)
[2016-11-24] MEDS: INSULIN ASPART SUPPLEMENTAL SCALE SQ SCH ×4 (06:13→20:20)
[2016-11-24] MEDS: DIVALPROEX SODIUM E.R. 500 MG TAB PO SCH ×2 (08:06→20:23)
[2016-11-24] MEDS: SALMETEROL XINAFOATE 50 MCG DISKUS INH SCH ×2 (08:06→20:23)
[2016-11-24] MEDS: CELECOXIB 100 MG CAP PO SCH ×2 (08:06→20:22)
[2016-11-24] MEDS: OLANZapine 5 MG TAB PO SCH ×3 (08:07→20:26)
[2016-11-24] MEDS: PANTOPRAZOLE SOD 40 MG DELAYED RELEASE TAB PO SCH (08:07)
[2016-11-24] MEDS: metFORMIN HCL 500 MG TAB PO SCH ×2 (08:07→16:45)
[2016-11-24] MEDS: ATORVASTATIN 20 MG TAB PO SCH (08:07)
[2016-11-24] MEDS: INSULIN DETEMIR 100 UNITS/ML VIAL SQ SCH ×2 (08:51→20:21)
[2016-11-24] MEDS: NICOTINE 21 MG/24 HR PATCH T-DERMAL SCH (08:52)
--- NOTE | 2016-11-24 11:47 | HHI.PR ---
Subjective Remarks Follow-up visit DM 2, HTN, depression, anxiety, COPD. Patient seen and examined today. Patient laying in bed. States he has some abdominal discomfort because he hasn't been going to the bathroom, endorses constipation. Patient also reports that he has some severe sensation of "wanting to scratch off my skin especially from my legs to my hips after 30 minutes of taking my medications at night." Patient states that he just felt that last night. No new medications have been added to patient's med list. Otherwise, denies pain and discomfort. Denies SOB/ dyspnea. Denies chest pain, palpitations, headaches, dizziness. Denies fevers, chills, n/v/d. Denies dysuria. Objective Vitals Vital Signs Date Time Temp Pulse Resp B/P Pulse Ox O2 Delivery O2 Flow Rate FiO2 11/24/16 05:57 97.3 95 16 111/65 95 11/23/16 18:15 96.9 82 18 130/69 97 Result Diagram: 11/20/16 0644 11/20/16 0644 Objective Remarks GENERAL: This is a well-nourished, well-developed patient, in no apparent distress. SKIN: No rashes, ecchymoses or lesions. Warmand dry. HEAD: Normocephalic. No temporal or scalp tenderness. EYES: Pupils equal round and reactive. Extraocular motions intact. No scleral icterus. No injection or drainage. ENT: Nose without bleeding. Throat without erythema. Uvula midline. Airway patent. NECK: Trachea midline. No JVD or lymphadenopathy. CARDIOVASCULAR: Regular rate and rhythm without murmurs, gallops, or rubs. RESPIRATORY: Diminished bases. No wheezes, rales, or rhonchi. GASTROINTESTINAL: Abdomen soft, mild tender deep palpation, nondistended. Bowel sounds hypoactive 4 MUSCULOSKELETAL: Extremities without clubbing, cyanosis, or edema. No joint tenderness, effusion, or edema noted. NEUROLOGICAL: Awake and alert. Oriented to person, place, time. Motor and sensory grossly within normal limits. Normal speech A/P Problem List: (1) COPD (chronic obstructive pulmonary disease) ICD Code: J44.9 Status: Chronic (2) Chronic low back pain ICD Code: M54.5 Status: Chronic (3) Depression with suicidal ideation ICD Code: F32.9 Status: Acute (4) Hyperlipidemia, unspecified ICD Code: E78.5 Status: Chronic (5) Alcohol abuse, unspecified ICD Code: F10.10 Status: Chronic (6) Type 2 diabetes mellitus with peripheral vascular disease ICD Code: E11.51 Status: Chronic Assessment and Plan Patient is a 56-year-old male with primary medical history of DM 2, hypertension, chronic back pain, depression, anxiety, COPD came into the hospital for suicidal ideation evaluation. He is admitted to inpatient psychiatry for further evaluation. Consulted for medical management. Depression, anxiety, suicidal ideation - Managed by psychiatry team COPD, not in exacerbation - Continue Serevent BID, Ventolin PRN - Monitor respiratory status DM 2 - Lantus, convert the Levemir increased dose to 30units BID - May restart on home medication Invokana may skip this if the patient doesn' t have it. May continue use of Invokana when he goes home. - Metformin 1000mg BID - Hemoglobin A1c10.5. - Monitor BG levels. Monitor for hypoglycemia. - Improved blood glucose levels. Chronic back pain - Continue Celebrex HTN, history - Not on any medication. - If BP elevation noted patient may start on low-dose lisinopril 10 mg daily. - Monitor BP trend HLD - LDL C1 10, cholesterol 213 - ASCVD risk 10 year 14.6%, recommended high-intensity statin - Discussed with patient. Lifestyle changes including exercise and weight loss. - Will start atorvastatin 20 mg daily Tobacco abuse - Counseled. Willing to stop smoking. - Nicotine patch Alcohol abuse Dyspepsia, GERD - Counseled on alcohol use - Monitor for withdrawals, Ativan when necessary - Pantoprazole 40 mg daily Constipation - Senokot daily, MOM when necessary. Scratching, Pruritus - No evidence of any skin breakdown or rash - No new medications at night. Review of meds for nighttime includes Zyprexa , Depakote, Celebrex, insulin - the patient states after taking pills - Monitor for now. DVT prop ambulatory Full code Discussed with patient, nursing, Dr. Laurie Loomis from Hospitalist standpoint. We will sign off. Reconsult as needed. Nelia Dalton Nov 24, 2016 11:47
--- NOTE | 2016-11-24 14:14 | HHI.PYPN ---
Subjective Remarks Patient was seen and case discussed with nursing. Patient is more seclusive today. Remains vague with the symptoms. Says he is feeling down. Denies suicidal ideation intent or plan. Denies psychotic symptoms. Compliant with medications Objective Alert: Yes [place]: Person, Place, Date, Situation Mood: Calm, Depressed Affect: Blunted Memory Intact: Comment (fair) Hallucinations: Other (denies) Delusions: No Delusion Type: Other (denies) Suicidal: Ideation (denies at this time) Homicidal: Ideation (denies) Insight/Judgment Poor Vitals/IOs Vital Signs Date Time Temp Pulse Resp B/P Pulse Ox O2 Delivery O2 Flow Rate FiO2 11/24/16 05:57 97.3 95 16 111/65 95 Assessment & Plan Problem List: (1) Schizoaffective disorder ICD Code: F25.9 Assessment & Plan Continue current treatment plan Justification for Cont. Inpt. Patient will decompensate in a less restrictive setting Request HC Surrog/Guard Advoc?: No Problem Qualifiers (1) Schizoaffective disorder: Qualified Code: F25.0 - Schizoaffective disorder, bipolar type Valdemar Espinoza DO Nov 24, 2016 14:14
[2016-11-24] MEDS: DOCUSATE SODIUM 50 MG/SENNA 8.6 MG TAB PO SCH (14:30)
[2016-11-24] MEDS ORDERED: BISACODYL 10 MG SUPP RECTAL PRN (14:30)
[2016-11-24 17:36] VITALS: BP 168/95; PULSE 102; RESP 18; TEMP 97.5; O2SAT 99
[2016-11-24] MEDS: REMOVE OLD NICOTINE PATCH T-DERMAL SCH (20:28)
[2016-11-25 06:04] VITALS: BP 120/67; PULSE 88; RESP 20; TEMP 98.1; O2SAT 96
[2016-11-25] MEDS: INVOKANA 300 MG PO SCH (06:18)
[2016-11-25] MEDS: INSULIN ASPART SUPPLEMENTAL SCALE SQ SCH ×3 (06:30→16:59)
[2016-11-25] MEDS: DIVALPROEX SODIUM E.R. 500 MG TAB PO SCH (08:43)
[2016-11-25] MEDS: OLANZapine 5 MG TAB PO SCH (08:44)
[2016-11-25] MEDS: ATORVASTATIN 20 MG TAB PO SCH (08:44)
[2016-11-25] MEDS: metFORMIN HCL 500 MG TAB PO SCH (08:44)
[2016-11-25] MEDS: PANTOPRAZOLE SOD 40 MG DELAYED RELEASE TAB PO SCH (08:44)
[2016-11-25] MEDS: CELECOXIB 100 MG CAP PO SCH (08:44)
[2016-11-25] MEDS: DOCUSATE SODIUM 50 MG/SENNA 8.6 MG TAB PO SCH (08:44)
[2016-11-25] MEDS: SALMETEROL XINAFOATE 50 MCG DISKUS INH SCH (08:45)
[2016-11-25] MEDS: NICOTINE 21 MG/24 HR PATCH T-DERMAL SCH (08:45)
[2016-11-25] MEDS: INSULIN DETEMIR 100 UNITS/ML VIAL SQ SCH (09:27)
--- NOTE | 2016-11-25 14:40 | PD.TTN ---
Patient Problems 1. Discharge planning 2. Medication compliance 3. Knowledge deficit 4. Lack of coping skills Progress Toward Goals Provider Input: Dr. Tsang's treatment team met to discuss patient's treatment plan, discharge, and medication. Doctor is anticipating, to discharge patient sometime this week. Patient is doing well. Treatment as usual. Psych Therapist Input: Patient is alert and oriented x5. Patient presents cooperative, pleasant, happy, affect appropriate. Patient made good eye contact. Patient's speech is clear, appropriate, tone, rate, and volume were in the normal range. Patient does not present internally stimulated or with any delusional content. Patient denies suicidal and homicidal ideation. Patient reports sleeping, and eating well. Patient is medication compliant. Occupational Therapist Input: Hoang COPE reports patient rarely attends groups. Patient left coffee social, upset due to being diabetic and not able to accept sugar free cookie. Ophelia Garcia [facility] Nov 25, 2016 14:40
[2016-11-25] MEDS ORDERED: DEPA500T3 PO (15:21)
[2016-11-25] MEDS ORDERED: OLAN5TAB PO (15:21)
[2016-11-25] MEDS ORDERED: LEVEMIR SQ (15:21)
[2016-11-25] MEDS ORDERED: SENN1TAB PO (15:21)
[2016-11-25] MEDS ORDERED: CELE100C PO (15:21)
[2016-11-25] MEDS ORDERED: PANT40TA3 PO (15:21)
[2016-11-25] MEDS ORDERED: SALM50I INH (15:21)
[2016-11-25] MEDS ORDERED: ATOR20TA15 PO (15:21)
[2016-11-25] MEDS ORDERED: METF500 PO (15:21)
--- NOTE | 2016-11-25 15:26 | HHI.DS ---
Psychiatry Discharge Summary Inpatient Psychiatric care?: Yes Advance Directive: No Reason Not Provided: DOES NOT HAVE Mental Health AdvanceDirective: No Health Care Proxy: No Admission Admission Date Nov 19, 2016 at 02:41 Admission Diagnosis: (1) Schizoaffective disorder ICD Code: F25.[address] Tsang's H&P: Patient is a 56-year-old white male comes here under [place] act signed by Jakob Roth at [facility] dated November 18 10:15 PM the document reviewed and agreed with basically stating patient had intention of using a gun to shoot kill himself without treatment may attempt self harm. Patient seen screened in the ED urine toxicology negative blood alcohol level negative. Of interest the patient was hospitalized here in January [address] Crane the diagnosis of adjustment disorder, impulse control disorder, and discharged on Depakote and Zyprexa. Since then the patient has been homeless for a period of time noncompliant with medications. He states he had a difficult time paying for his medications. He more recently was seen by clinician at [facility] emission the thoughts of suicide the increased auditory or visual hallucinations of multiple different people. That clinician felt he needed inpatient hospitalization and patient was transferred to this facility. Patient sitting quietly in his room medical student Hansel present throughout session. Patient did remember me from prior contact. [place]. He does have some insight into his need for stabilization on his medication though is doing so rationalization related to his issues. He states he had said episode of some increase alcohol abuse last drink being about 3 or 4 days ago. Those vital signs are stable. At the present time patient meets criteria for involuntary psychiatric hospitalization I will do first opinion requests second.. I feel is capacity to sign for his medications and is willing to do that. We will the hospitalist consult was related to his diabetes no medical issues. We'll continue medication per the med reconciliation adding Depakote 500 mg twice a day and Zyprexa 5 mg at at bedtime. Hopeless to be fairly short stay turned to his home to follow-up outpatient [facility] act On my examination today: Patient seen and examined with nurse. Chart reviewed. Case discussed with nursing staff. On my examination today, the patient reports chronic suicidal ideation worse over the last year or so. He says that he has been drinking heavily in the last 3 weeks in the hopes that this will end his life. He says that recently he has been contemplating shooting himself with his friend's gun. He endorses auditory hallucinations conversing with each other although he does not describe any command auditory hallucinations. No delusions. Affect dysphoric. No hypomanic or manic symptoms. The remainder of the psychiatric ROS is negative. Past psychiatric history: Patient reports a history of schizoaffective disorder. He follows at [facility]. His most recent psychiatric admission was at [facility]. He endorses a history of suicide attempts by trying to jump off of a bridge. Family history: The patient reports a history of depression in his mother. Chemical dependency history: The patient endorses a history of abuse of drugs or alcohol. Social history: The patient reports that he is . He has no children. He has an eighth grade education. He reports that his disability income has recently initiated. Tobacco Use In Past 30 Days: 5 or More Cigarettes/Day Alcohol Use: 4 or More Times Per Week Hospital Course Patient showed cooperation from admission, his mood slowly softened and improved with the milieu and groups. His mood also improved with his cooperation compliance with the medication. He denies now suicidality homicidality voices or visions. She was compliance with medication. He does have a room that he rents the family that supportive of him and he wishes to be discharged to go back with his pet dog. At this time he no longer meets. For continued inpatient psychiatric hospitalization. Thus will be discharged today to himself Rx 1 month follow-up [facility] Results Blood Pressure 120 / 67 Vital Signs Date Time Temp Pulse Resp B/P Pulse Ox O2 Delivery O2 Flow Rate FiO2 11/25/16 06:04 98.1 88 20 120/67 96 Urine toxicology negative blood alcohol level negative Summary of Procedures None done Pending results at discharge: No Medications # of Antipsychotic meds at D/C: 1 Approp Antipsych med options 1 - Minimum of three failed multiple trials of monotherapy. 2 - Documented plan to taper to monotherapy due to previous use of multiple meds OR cross-taper in progress at D/C. 3 - Documentation of augmentation of Clozapine. 4 - Justification other than those listed in allowable values 1-3, document here : Discharge Discharge Date: Nov 25, 2016 Discharge Diagnosis: (1) Schizoaffective disorder Diagnosis: Principal ICD Code: F25.9 Mental Status Exam at Disch Alert oriented [place] white male, he is normal active, his mood is euthymic with slightly decreased range intensity of his affect. Speech rate and rhythm within normal limits, no formal thought disorders. No auditory or visual hallucinations, no delusions. Insight and judgment is poor to fair cognition grossly intact Pt Condition on Discharge: Stable Discharge Disposition: Discharge Home Discharge Instructions Diet Instructions: As Tolerated, No Restrictions Activities you can perform: Regular-No Restrictions Scheduled Appointment: Justin Oswald Appointment Date: Nov 27, 2016 Appointment Time: 7:30am Discharge Time > 30 minutes Discharge/Advance Care Plan Health Problems: (1) Schizoaffective disorder Goals to promote your health * To prevent worsening of your condition and complications * To maintain your health at the optimal level Directions to meet your goals Take your medications as prescribed Follow your dietary instruction Follow activity as directed Keep your appointments as scheduled Take your immunizations and boosters as scheduled If your symptoms worsen call your PCP, if no PCP go to Urgent Care Center or Emergency Room For 16/12 questions related to your inpatient stay or results of tests pending at discharge, please contact Dr. Ashwin Tsang at Smoking is Dangerous to Your Health. Avoid second hand smoking Problem Qualifiers (1) Schizoaffective disorder: Qualified Code: F25.0 - Schizoaffective disorder, bipolar type Ashwin Tsang MD Nov 25, 2016 15:26
== END 2016-11-25 17:25 | disposition home or self-care (01) | DRG 885 ==
LOC: NEPE 13:38 → NEDA 11-19 02:41 → H260 11-19 05:25
PROVIDERS: ADMIT Psychiatry & Neurology Psychiatry; ATTEND Psychiatry & Neurology Psychiatry
DX: F25.0 Schizoaffective disorder, bipolar type (principal); R45.851 Suicidal ideations; E11.65 Type 2 diabetes mellitus with hyperglycemia; J44.9 Chronic obstructive pulmonary disease, unspecified; E78.5 Hyperlipidemia, unspecified; K21.9 Gastro-esophageal reflux disease without esophagitis; G89.29 Other chronic pain; L29.9 Pruritus, unspecified; F17.210 Nicotine dependence, cigarettes, uncomplicated; M54.5 Low back pain; F10.10 Alcohol abuse, uncomplicated; K59.00 Constipation, unspecified; Z91.14 Patient's other noncompliance with medication regimen; Z79.4 Long term (current) use of insulin
CPT/HCPCS: 80053; 80061; 80307; 82948; 83036; 84443; 85025; 93005; 96372; 99281; J1815; Q0163

== ENCOUNTER 2017-01-20 13:07 | Inpatient (IN) | payer OTHER ==
[~2017-01-20] VITALS: Ht 172.7 cm; Wt 118.6 kg
[~2017-01-20 13:07] MED LIST changes: +DEPA500T3 PO; -DIVA250T3 PO; -DULO1CAP PO; -HYDR50CA PO; -INSU-150; -INSU1MIS15; +LEVEMIR SQ; -METF1000 PO; +METF500 PO; +OLAN5TAB PO; +PANT40TA3 PO; +SENN1TAB PO; -SERT-129 PO
[2017-01-20 13:19] VITALS: BP 151/92; PULSE 82; RESP 18; TEMP 98.2; O2SAT 98
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
[2017-01-20 13:59] LABS: AUTOMATED NEUTROPHIL # 5.8 TH/MM3 (1.8-7.7); BASOPHIL # 0.1 TH/MM3 (0-0.2); BASOPHIL % 0.6 % (0.0-2.0); EOSINOPHIL # 0.2 TH/MM3 (0-0.4); EOSINOPHIL % 2.4 % (0.0-4.0); HEMO FLAGS DIFF FINAL; LYMPH % 25.6 % (9.0-44.0); LYMPHOCYTE # 2.3 TH/MM3 (1.0-4.8); MEAN CELL VOLUME 100.6 FL (80.0-100.0); MEAN CORPUSCULAR HEMOGLOBIN 34.3 PG (27.0-34.0); MEAN CORPUSCULAR HGB CONC 34.1 % (32.0-36.0); MONO % 5.7 % (0.0-8.0); NEUT % 65.7 % (16.0-70.0); PLATELET COUNT 177 TH/MM3 (150-450); RED BLOOD COUNT 4.57 MIL/MM3 (4.50-5.90); RED CELL DISTRIBUTION WIDTH 15.8 % (11.6-17.2); WHITE BLOOD COUNT 8.8 TH/MM3 (4.0-11.0)
[2017-01-20 14:17] LABS: ANION GAP 11 MEQ/L (5-15); BICARBONATE 22.3 MEQ/L (21.0-32.0); BLOOD UREA NITROGEN 11 MG/DL (7-18); CHLORIDE 105 MEQ/L (98-107); GLOMERULAR FILTRATION RATE 105 ML/MIN (>89); POTASSIUM 3.8 MEQ/L (3.5-5.1); SODIUM (NA) 138 MEQ/L (136-145)
[2017-01-20 14:25] LABS: ALCOHOL LESS THAN 3 MG/DL (0-5)
[2017-01-20 16:23] VITALS: BP 137/87; PULSE 84; RESP 18; O2SAT 97
[2017-01-20] MEDS: INSULIN NovoLIN REGULAR SUPPLEMENTAL SCALE SQ SCH ×2 (17:04→21:00)
[2017-01-20 18:58] VITALS: BP 128/75; PULSE 81; RESP 18; O2SAT 98
[2017-01-20] MEDS ORDERED: ACETAMINOPHEN 325 MG TAB PO PRN (21:45)
[2017-01-20] MEDS ORDERED: diphenhydrAMINE HCL 50 MG CAP - HS PRN PO (21:45)
[2017-01-20] MEDS ORDERED: diphenhydrAMINE HCL 50 MG/ML VIAL - HS PRN IM (21:45)
[2017-01-20] MEDS ORDERED: ALUMINUM/MAGNESIUM/SIMETH 30 ML CUP PO PRN (21:45)
[2017-01-20] MEDS ORDERED: MAGNESIUM HYDROXIDE SUSP 30 ML CUP PO PRN (21:45)
[2017-01-20 23:34] VITALS: BP 156/100; PULSE 73; RESP 16; TEMP 97.9; O2SAT 100
[2017-01-21] MEDS: hydrOXYzine HCL 50 MG TAB PO PRN (00:36)
[2017-01-21 05:37] VITALS: BP 132/70; PULSE 72; RESP 20; TEMP 97.9; O2SAT 96
[2017-01-21 06:16] VITALS: BP 132/70; PULSE 72; RESP 20; TEMP 97.9; O2SAT 96
[2017-01-21] MEDS: INSULIN NovoLIN REGULAR SUPPLEMENTAL SCALE SQ SCH ×4 (06:30→20:15)
[2017-01-21] MEDS: SALMETEROL XINAFOATE 50 MCG DISKUS INH SCH ×2 (08:27→21:11)
[2017-01-21] MEDS: ATORVASTATIN 20 MG TAB PO SCH (08:28)
[2017-01-21] MEDS: PANTOPRAZOLE SOD 40 MG DELAYED RELEASE TAB PO SCH (08:28)
[2017-01-21] MEDS: DOCUSATE SODIUM 50 MG/SENNA 8.6 MG TAB PO SCH (08:28)
[2017-01-21] MEDS: metFORMIN HCL 500 MG TAB PO SCH ×2 (08:29→17:09)
[2017-01-21] MEDS: CELECOXIB 100 MG CAP PO SCH ×2 (08:29→21:00)
[2017-01-21] MEDS: NICOTINE 21 MG/24 HR PATCH T-DERMAL SCH (08:34)
[2017-01-21] MEDS ORDERED: CANAGLIFLOZIN 300 MG PO SCH (09:00)
[2017-01-21] MEDS ORDERED: OLANZapine 5 MG TAB PO SCH (09:00)
[2017-01-21] MEDS ORDERED: DIVALPROEX SODIUM E.R. 500 MG TAB PO SCH (09:00)
[2017-01-21] MEDS ORDERED: INSULIN DETEMIR 100 UNITS/ML VIAL SQ SCH (09:00)
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
[2017-01-21 13:13] LABS: ANION GAP 10 MEQ/L (5-15); BICARBONATE 26.3 MEQ/L (21.0-32.0); BLOOD UREA NITROGEN 11 MG/DL (7-18); CHLORIDE 102 MEQ/L (98-107); GLOMERULAR FILTRATION RATE 101 ML/MIN (>89); POTASSIUM 4.1 MEQ/L (3.5-5.1); SODIUM (NA) 138 MEQ/L (136-145)
[2017-01-21 13:15] LABS: LDL CHOLESTEROL 88 MG/DL (0-99)
[2017-01-21] MEDS ORDERED: DEXTROSE 50% IN WATER 50 ML VIAL(D50) IV PRN (13:45)
[2017-01-21] MEDS ORDERED: GLUCAGON 1 MG/ML VIAL OTHER PRN (13:45)
--- NOTE | 2017-01-21 13:53 | PD.CONS ---
HPI Service [facility] Consult Requested By Dr. Tsang Reason for Consult Diabetes management Primary Care Physician Maura Gómez MD Diagnoses: History of Present Illness Written by Samantha Navas, acting as scribe for Dr. Berger on 01/21/17 at 13:53. Mr. Brock is a 57-year-old male patient with a primary medical history of DM 2, hypertension, chronic back pain, depression, anxiety, COPD came into the hospital for suicidal and homicidal ideation evaluation. Patient states he has a history of schizophrenia and has been hearing loud voices in his mind telling him "to do things and if we knew what they were we would straight jacket him". Patient states has has been depressed about many people in his life owing him money and not being a good friend leading to his suicidal and homicidal thoughts. He states he gets discouraged often with his living situation and roommates. Patient also admits to frequent forgetfulness and relates this to possible medication side effects. He also states he has been forgetful with his medications and rather noncompliant. Does have a PCP but does not remember the name. He currently states some suicidal ideation stating "if he could go he would". Denies any recent illness including fever, chills, cough, shortness of breath, n/v/d, diarrhea. Review of Systems Musculoskeletal: COMPLAINS OF: Joint pain Psychiatric: COMPLAINS OF: Anxiety, Mood changes, Depression, Hallucinations, Suicidal Ideation, Homicidal Ideation, Delusions Except as stated in HPI: all other systems reviewed are Neg Past Family Social History Allergies: Coded Allergies: chicken derived (Unverified Adverse Reaction, Severe, Nausea/Vomiting, ) turkey (Unverified Adverse Reaction, Unknown, Nausea/Vomiting, 01/16/17) Past Medical History Diabetes 2 HTN Chronic back pain Depression Anxiety Bipolar COPD Past Surgical History Left eye surgery secondary to trauma Reported Medications Reported Meds & Active Scripts Active Glucophage (Metformin HCl) 500 Mg Tab 1,000 Mg PO 2 BIDPC Atorvastatin (Atorvastatin Calcium) 20 Mg Tab 20 Mg PO DAILY Invokana (Canagliflozin) 300 Mg Tab 300 Mg PO DAILY Take before 1st meal of day. Senna Plus 8.6-50 mg (Sennosides-Docusate Sodium) 1 Tab Tab 2 Tab PO DAILY Serevent Diskus Inh (Salmeterol Xinafoate) 50 Mcg/Act Aero 50 Mcg INH BID Pantoprazole (Pantoprazole Sodium) 40 Mg Tab 40 Mg PO DAILY Olanzapine 5 Mg Tab 5 Mg PO BID Levemir Inj (Insulin Detemir) 1,000 unit/ 10 ML Vial 30 Units SQ BID Depakote ER (Divalproex Sodium) 500 Mg Brody 500 Mg PO BID Celebrex (Celecoxib) 100 Mg Cap 100 Mg PO BID Active Ordered Medications Current Medications Medications (Trade) Dose Ordered Sig/Grzegorz Route Start Time Stop Time Status Last Admin (NovoLIN R SUPPLEMENTAL SCALE) 1 ACHS SLIDING SCALE SQ 01/20/17 16:00 01/21/17 10:56 (Atarax) 50 mg Q6H PRN PO 01/20/17 21:45 01/21/17 00:36 (Benadryl) 50 mg HS PRN PO 01/20/17 21:45 (Benadryl Inj) 50 mg HS PRN IM 01/20/17 21:45 (Tylenol) 650 mg Q4H PRN PO 01/20/17 21:45 01/21/17 00:38 (Milk Of Magnesia Liq) 30 ml DAILY PRN PO 01/20/17 21:45 (Mag-Al Plus Susp Liq) 30 ml Q6H PRN PO 01/20/17 21:45 (Habitrol 21 Mg Patch.24 Hr) 1 patch DAILY T-DERMAL 01/21/17 09:00 Miscellaneous Information 1 HS T-DERMAL 01/21/17 21:00 (CeleBREX) 100 mg BID PO 01/21/17 09:00 01/21/17 08:29 (Levemir Inj) 30 units BID SQ 01/21/17 09:00 01/21/17 07:55 (Protonix) 40 mg DAILY PO 01/21/17 09:00 01/21/17 08:28 (Serevent Diskus Inh) 50 mcg BID INH 01/21/17 09:00 01/21/17 08:27 (Shaylee-Colace) 2 tab DAILY PO 01/21/17 09:00 01/21/17 08:28 Patient Own Medication PT OWN MED: CANAGLIFOZIN (INVOKA... DAILY PO 01/21/17 09:00 Future Hold (Lipitor) 20 mg DAILY PO 01/21/17 09:00 01/21/17 08:28 (Glucophage) 1,000 mg BIDPC PO 01/21/17 09:00 01/21/17 08:29 (Proair Hfa Inh) 2 puff Q4H PRN INH 01/21/17 14:00 (D50w (Vial) Inj) 50 ml UNSCH PRN IV 01/21/17 13:45 (Glucagon Inj) 1 mg UNSCH PRN OTHER 01/21/17 13:45 (Depakote Dr) 500 mg BID PO 01/21/17 21:00 (risperDAL) 1 mg Q12HR PO 01/21/17 21:00 Family History Maternal medical history significant for psychological problems, now . Father is , had agent orange. Social History Patient lives with roommates, currently on disability Denies any alcohol use. States he stopped smoking 5 months ago and previously smoked 1 ppd on and off for several years. Denies illicit drug use. Physical Exam Vital Signs Vital Signs Date Time Temp Pulse Resp B/P (MAP) Pulse Ox O2 Delivery O2 Flow Rate FiO2 01/21/17 06:16 97.9 72 20 132/70 (90) 96 01/21/17 05:37 97.9 72 20 132/70 (90) 96 01/20/17 23:34 97.9 73 16 156/100 (118) 100 01/20/17 22:03 01/20/17 18:58 81 18 128/75 (92) 98 Room Air 01/20/17 16:23 84 18 137/87 (104) 97 Room Air Physical Exam GENERAL: This is a well-nourished, well-developed patient, in no apparent distress. SKIN: No rashes, ecchymoses or lesions. Warmand dry. HEAD: Normocephalic. No temporal or scalp tenderness. EYES: Pupils equal round and reactive. Extraocular motions intact. No scleral icterus. No injection or drainage. ENT: Nose without bleeding. Throat without erythema. Uvula midline. Airway patent. NECK: Trachea midline. No JVD or lymphadenopathy. CARDIOVASCULAR: Regular rate and rhythm without murmurs, gallops, or rubs. RESPIRATORY: Diminished bases. No wheezes, rales, or rhonchi. GASTROINTESTINAL: Abdomen soft, non-tender, nondistended. Bowel sounds active 4 MUSCULOSKELETAL: Extremities without clubbing, cyanosis, or edema. No joint tenderness, effusion, or edema noted. No calf tenderness. Negative Homans sign bilaterally. NEUROLOGICAL: Awake and alert. Oriented to person, place, time. Motor and sensory grossly within normal limits. Normal speech. Laboratory Laboratory Tests Test 01/21/17 11:46 Blood Urea Nitrogen 11 Creatinine 0.79 Random Glucose 211 Calcium Level 9.0 Sodium Level 138 Potassium Level 4.1 Chloride Level 102 Carbon Dioxide Level 26.3 Anion Gap 10 Estimat Glomerular Filtration Rate 101 Triglycerides Level 212 Cholesterol Level 167 LDL Cholesterol 88 HDL Cholesterol 37.0 Cholesterol/HDL Ratio 4.51 Valproic Acid (Depakene) Level 19 Result Diagram: 01/20/17 1330 01/21/17 1146 Assessment and Plan Assessment and Plan Patient is a 56-year-old male with primary medical history of DM 2, hypertension, chronic back pain, depression, anxiety, COPD came into the hospital for suicidal and homicidal ideation evaluation. He is admitted to inpatient psychiatry for further evaluation. Consulted for medical management. Depression, anxiety, suicidal and homicidal ideation - Managed by psychiatry team COPD, not in exacerbation - Continue Serevent BID, Albuterol - Monitor respiratory status - incentive spirometry DM 2 - Restart Levemir at daily dosing. Increase back up to 30 units BID as blood sugars allow. - Metformin 1000mg BID - Check hemoglobin A1c. Monitor BG levels. Monitor for hypoglycemia. Chronic back pain - Continue Celebrex - PT. HTN, history - Not on any antihypertensives. - Monitor BP trend - Check lipid panel History of tobacco abuse - Has quit smoking 5 years ago. Dyspepsia, GERD - Pantoprazole 40 mg daily OA The pt has painful hand joints and describes limited ROM. - OT requested to work on ROM. DVT prop ambulatory Thank you for this consultation. Will follow patient with you. Discussed Condition With This note was transcribed by kenrick Navas. I, Dr. Baljinder Berger personally performed the history, physical exam, and medical decision making; and confirmed the accuracy of the information in the transcribed note. Authenticated by Dr. Baljinder Berger on 01/21/17 at 15:18. Samantha Navas Jan 21, 2017 13:53 Baljinder Berger DO Jan 21, 2017 15:21
[2017-01-21] MEDS ORDERED: ALBUTEROL SULFATE 90 MCG/ACT HFA 8 GM INHALER INH PRN (14:00)
[2017-01-21] MEDS ORDERED: ALBUTEROL SULFATE 90 MCG/ACT HFA 18 GM INHALER INH PRN (14:00)
[2017-01-21 15:33] LABS: HEMOGLOBIN A1a 1.4 %; HEMOGLOBIN A1b 2.8 %; HEMOGLOBIN Ao 77.4 %; HEMOGLOBIN LA1C 2.9 %; HEMOGLOBIN P3 4.4 %
[2017-01-21 18:11] VITALS: BP 121/78; PULSE 87; RESP 19; TEMP 98.9; O2SAT 95
[2017-01-21 18:58] LABS: INDIRECT BILIRUBIN 0.4 MG/DL (0.0-0.8); TOTAL BILIRUBIN ADULT 0.5 MG/DL (0.2-1.0)
[2017-01-21] MEDS: REMOVE OLD NICOTINE PATCH T-DERMAL SCH (21:00)
[2017-01-21] MEDS: DIVALPROEX DR 500 MG TABEC PO SCH (21:12)
[2017-01-21] MEDS: risperiDONE 1 MG TAB PO SCH (21:13)
[2017-01-22] MEDS: INSULIN NovoLIN REGULAR SUPPLEMENTAL SCALE SQ SCH ×4 (06:31→21:00)
[2017-01-22 06:47] VITALS: BP 101/61; PULSE 87; RESP 16; TEMP 97.4
--- NOTE | 2017-01-22 08:57 | PD.TTN ---
Patient Problems 1. Discharge planning 2. Medication compliance 3. Knowledge deficit 4. Lack of coping skills Progress Toward Goals Provider Present: Dr. Oseas Crane Provider Input: Patient is in need of medication management and will be further stablized on the unit. Nurse(s) Present: [place] Nurse(s) Input: Patient is new on the unit but has been compliant and nonbehavioral. Psychiatric Counselors Present: TENNILLE Campos Psych Therapist Input: Patient was observed to be in bed and has been compliant and cooperative. Group Spec/RT/OT/JOSEPH Present: OPAL Vance Group Spec/RT/OT/JOSEPH Input: Patient is new on the unit. Documentation Teaching Recipient: Patient EliuAutumn NULL Jan 22, 2017 08:57
[2017-01-22] MEDS ORDERED: INSULIN DETEMIR 100 UNITS/ML VIAL SQ SCH (09:00)
[2017-01-22] MEDS: DOCUSATE SODIUM 50 MG/SENNA 8.6 MG TAB PO SCH (09:10)
[2017-01-22] MEDS: metFORMIN HCL 500 MG TAB PO SCH ×2 (09:10→18:00)
[2017-01-22] MEDS: risperiDONE 1 MG TAB PO SCH ×2 (09:10→21:23)
[2017-01-22] MEDS: PANTOPRAZOLE SOD 40 MG DELAYED RELEASE TAB PO SCH (09:10)
[2017-01-22] MEDS: NICOTINE 21 MG/24 HR PATCH T-DERMAL SCH (09:11)
[2017-01-22] MEDS: ATORVASTATIN 20 MG TAB PO SCH (09:11)
[2017-01-22] MEDS: CELECOXIB 100 MG CAP PO SCH ×2 (09:11→21:24)
[2017-01-22] MEDS: DIVALPROEX DR 500 MG TABEC PO SCH ×2 (09:11→21:22)
[2017-01-22] MEDS: SALMETEROL XINAFOATE 50 MCG DISKUS INH SCH ×2 (09:12→21:24)
--- NOTE | 2017-01-22 11:57 | HHI.PYPN ---
Subjective Remarks Patient seen and examined with counselor. Chart reviewed. Case discussed with nursing staff. No behavioral issues overnight. On my examination today, the patient reports that he slept well overnight. Says that his auditory hallucinations are decreasing as if "far off in the distance." Remains quite angry at Jn but does not verbalize any active desire to hurt him at this time. No HI otherwise. Denies side effects from medications. No physical complaints. Review of Systems ROS Limitations: Psychotic Except as stated in HPI: all other systems reviewed are Neg Objective Alert: Yes [place]: Person, Place, Date Mood: Calm Affect: Appropriate Memory Intact: Comment (intact on clinical exam) Hallucinations: Auditory (reportedly decreasing) Delusions: No Delusion Type: Other (none) Suicidal: Ideation (no SI) Homicidal: Ideation (as noted above) Insight/Judgment Poor Remarks No motor abnormalities noted. Thought process linear. Grooming and hygiene good. Labs Bedside glucoses reviewed. Labs reviewed. Vitals/IOs Vital Signs Date Time Temp Pulse Resp B/P (MAP) Pulse Ox O2 Delivery O2 Flow Rate FiO2 01/22/17 06:47 97.4 87 16 101/61 (74) 01/21/17 18:11 95 01/20/17 18:58 Room Air Assessment & Plan Problem List: (1) Schizoaffective disorder ICD Codes: F25.9 - Schizoaffective disorder, unspecified Status: Acute Assessment & Plan Titrate Risperdal to 1.5 mg twice daily to target residual psychotic symptoms. Consider long-acting injectable antipsychotic. Continue Depakote as ordered. Check a Depakote and ammonia level later in the week. Appreciate hospitalist input. Continue other medications and care as ordered. Justification for Cont. Inpt. Medication changes in process. Risk for decompensation in less restrictive environment. Discharge Planning Pending psychiatric stabilization. Request HC Surrog/Guard Advoc?: No Problem Qualifiers (1) Schizoaffective disorder: Qualified Codes: F25.0 - Schizoaffective disorder, bipolar type Marty Crane MD Jan 22, 2017 11:57
[2017-01-22 16:22] LABS: AUTOMATED NEUTROPHIL # 4.1 TH/MM3 (1.8-7.7); BASOPHIL % 0.6 % (0.0-2.0); EOSINOPHIL # 0.2 TH/MM3 (0-0.4); EOSINOPHIL % 2.5 % (0.0-4.0); HEMATOCRIT 45.1 % (39.0-51.0); HEMO FLAGS DIFF FINAL; LYMPH % 31.3 % (9.0-44.0); LYMPHOCYTE # 2.2 TH/MM3 (1.0-4.8); MEAN CELL VOLUME 101.1 FL (80.0-100.0); MEAN CORPUSCULAR HEMOGLOBIN 34.6 PG (27.0-34.0); MEAN CORPUSCULAR HGB CONC 34.2 % (32.0-36.0); NEUT % 58.6 % (16.0-70.0); PLATELET COUNT 149 TH/MM3 (150-450); RED BLOOD COUNT 4.46 MIL/MM3 (4.50-5.90)
[2017-01-22 16:51] LABS: ANION GAP 13 MEQ/L (5-15); AST (GOT) 18 U/L (15-37); BICARBONATE 22.7 MEQ/L (21.0-32.0); BLOOD UREA NITROGEN 11 MG/DL (7-18); CHLORIDE 102 MEQ/L (98-107); GLOMERULAR FILTRATION RATE 86 ML/MIN (>89); SODIUM (NA) 138 MEQ/L (136-145)
[2017-01-22 16:52] LABS: ALT (GPT) 40 U/L (12-78)
[2017-01-22 16:54] LABS: ALKALINE PHOSPHATASE 95 U/L (45-117); TOTAL BILIRUBIN ADULT 0.3 MG/DL (0.2-1.0)
[2017-01-22 18:27] VITALS: BP 128/79; PULSE 114; RESP 18; TEMP 97.7; O2SAT 96
[2017-01-22] MEDS: REMOVE OLD NICOTINE PATCH T-DERMAL SCH (21:00)
[2017-01-22] MEDS: INSULIN DETEMIR 100 UNITS/ML VIAL SQ SCH (21:00)
[2017-01-22] MEDS: NAPROXEN 250 MG TAB PO PRN (21:23)
[2017-01-22] MEDS: hydrOXYzine HCL 50 MG TAB PO PRN (21:32)
[2017-01-23 05:30] VITALS: BP 114/73; PULSE 95; RESP 18; TEMP 97.6; O2SAT 95
[2017-01-23] MEDS: INSULIN NovoLIN REGULAR SUPPLEMENTAL SCALE SQ SCH ×4 (06:24→20:53)
[2017-01-23] MEDS: risperiDONE 1 MG TAB PO SCH ×2 (09:00→20:53)
[2017-01-23] MEDS: ATORVASTATIN 20 MG TAB PO SCH (09:00)
[2017-01-23] MEDS: NICOTINE 21 MG/24 HR PATCH T-DERMAL SCH (09:00)
[2017-01-23] MEDS: SALMETEROL XINAFOATE 50 MCG DISKUS INH SCH ×2 (09:00→20:53)
[2017-01-23] MEDS: INSULIN DETEMIR 100 UNITS/ML VIAL SQ SCH ×2 (09:24→21:00)
[2017-01-23] MEDS: DOCUSATE SODIUM 50 MG/SENNA 8.6 MG TAB PO SCH (09:27)
[2017-01-23] MEDS: DIVALPROEX DR 500 MG TABEC PO SCH ×2 (09:28→20:53)
[2017-01-23] MEDS: metFORMIN HCL 500 MG TAB PO SCH ×2 (09:28→18:00)
[2017-01-23] MEDS: PANTOPRAZOLE SOD 40 MG DELAYED RELEASE TAB PO SCH (09:28)
[2017-01-23] MEDS: CELECOXIB 100 MG CAP PO SCH ×2 (09:29→20:53)
[2017-01-23] MEDS: NAPROXEN 250 MG TAB PO PRN ×2 (09:29→20:53)
[2017-01-23] MEDS: hydrOXYzine HCL 50 MG TAB PO PRN ×2 (09:32→20:53)
--- NOTE | 2017-01-23 10:06 | HHI.PR ---
Subjective Remarks Patient denies any complaints - denies cp/sob denies nausea or vomiting Blood sugars elevated Objective Vitals Vital Signs Date Time Temp Pulse Resp B/P (MAP) Pulse Ox O2 Delivery O2 Flow Rate FiO2 01/23/17 05:30 97.6 95 18 114/73 (87) 95 01/22/17 18:27 97.7 114 18 128/79 (95) 96 I/O 01/22/17 01/22/17 01/22/17 01/23/17 01/23/17 01/23/17 06:59 14:59 22:59 06:59 14:59 22:59 Intake Total 480 ml 240 ml Balance 480 ml 240 ml Intake Oral 480 ml 240 ml Result Diagram: 01/22/17 1544 01/22/17 1544 Objective Remarks AAOx3, nad S1S2 Clear lungs BL Medications and IVs Current Medications Medications (Trade) Dose Ordered Sig/Grzegorz Route Start Time Stop Time Status Last Admin (NovoLIN R SUPPLEMENTAL SCALE) 1 ACHS SLIDING SCALE SQ 01/20/17 16:00 01/23/17 06:24 (Atarax) 50 mg Q6H PRN PO 01/20/17 21:45 01/23/17 09:32 (Benadryl) 50 mg HS PRN PO 01/20/17 21:45 (Benadryl Inj) 50 mg HS PRN IM 01/20/17 21:45 (Tylenol) 650 mg Q4H PRN PO 01/20/17 21:45 01/21/17 00:38 (Milk Of Magnesia Liq) 30 ml DAILY PRN PO 01/20/17 21:45 (Mag-Al Plus Susp Liq) 30 ml Q6H PRN PO 01/20/17 21:45 (Habitrol 21 Mg Patch.24 Hr) 1 patch DAILY T-DERMAL 01/21/17 09:00 01/22/17 09:11 Miscellaneous Information 1 HS T-DERMAL 01/21/17 21:00 (CeleBREX) 100 mg BID PO 01/21/17 09:00 01/23/17 09:29 (Protonix) 40 mg DAILY PO 01/21/17 09:00 01/23/17 09:28 (Serevent Diskus Inh) 50 mcg BID INH 01/21/17 09:00 01/23/17 09:00 (Shaylee-Colace) 2 tab DAILY PO 01/21/17 09:00 01/23/17 09:27 Patient Own Medication PT OWN MED: CANAGLIFOZIN (INVOKA... DAILY PO 01/21/17 09:00 Future Hold (Lipitor) 20 mg DAILY PO 01/21/17 09:00 01/23/17 09:00 (Glucophage) 1,000 mg BIDPC PO 01/21/17 09:00 01/23/17 09:28 (Proair Hfa Inh) 2 puff Q4H PRN INH 01/21/17 14:00 (D50w (Vial) Inj) 50 ml UNSCH PRN IV 01/21/17 13:45 (Glucagon Inj) 1 mg UNSCH PRN OTHER 01/21/17 13:45 (Depakote Dr) 500 mg BID PO 01/21/17 21:00 01/23/17 09:28 (Naprosyn) 250 mg Q12H PRN PO 01/21/17 15:30 01/23/17 09:29 (risperDAL) 1.5 mg Q12HR PO 01/22/17 21:00 01/23/17 09:00 (Levemir Inj) 20 units Q12HR SQ 01/22/17 21:00 01/23/17 09:24 A/P Assessment and Plan Patient is a 56-year-old male with primary medical history of DM 2, hypertension, chronic back pain, depression, anxiety, COPD came into the hospital for suicidal and homicidal ideation evaluation. He is admitted to inpatient psychiatry for further evaluation. Consulted for medical management. Depression, anxiety, suicidal and homicidal ideation - Managed by psychiatry team COPD, not in exacerbation - Continue Serevent BID, Albuterol - Monitor respiratory status - incentive spirometry DM 2 - Restart Levemir at daily dosing. Increase back up to 30 units BID as blood sugars allow. - Metformin 1000mg BID - Check hemoglobin A1c. Monitor BG levels. Monitor for hypoglycemia. - 01/22 Blood sugars still uncontrolled. Increase Levemir to 20 mg SQ BID. Chronic back pain - Continue Celebrex - PT. HTN, history - Not on any antihypertensives. - Monitor BP trend - Check lipid panel History of tobacco abuse - Has quit smoking 5 years ago. Dyspepsia, GERD - Pantoprazole 40 mg daily - Stable OA - pt evaluated patient - DC home with cane. DVT prop ambulatory Froylan Nguyen MD Jan 23, 2017 10:06
--- NOTE | 2017-01-23 13:28 | HHI.PYPN ---
Subjective Remarks Patient seen and examined with counselor. Chart reviewed. Case discussed with nursing staff. No behavioral issues overnight. On my examination today, the patient reports marked improvement in his auditory hallucinations with Risperdal therapy. He says that at most he hears a slight ringing in his ears. No voices. Mood is improving. Denies SI or HI. He has spoken with a financial representative from [facility] and has been accepted there next Friday, and he is agreeable to this. Denies side effects from medications. No physical complaints besides chronic back pain. Remains interested in a long-acting injectable antipsychotic and we discussed the risks, benefits and alternatives of a trial of Invega Sustenna. Patient agreeable to initiating Invega Sustenna today. Review of Systems Except as stated in HPI: all other systems reviewed are Neg Objective Alert: Yes [place]: Person, Place, Date Mood: Calm Affect: Appropriate Memory Intact: Comment (intact on clinical exam) Hallucinations: Other (denies AVH) Delusions: No Delusion Type: Other (no delusional material) Suicidal: Ideation (denies SI) Homicidal: Ideation (denies HI) Insight/Judgment Poor Remarks No motor abnormalities noted. Thought process linear. Grooming and hygiene fair. Labs Test 01/22/17 15:44 White Blood Count 7.0 TH/MM3 Red Blood Count 4.46 MIL/MM3 Hemoglobin 15.4 GM/DL Hematocrit 45.1 % Mean Corpuscular Volume 101.1 FL Mean Corpuscular Hemoglobin 34.6 PG Mean Corpuscular Hemoglobin Concent 34.2 % Red Cell Distribution Width 16.0 % Platelet Count 149 TH/MM3 Mean Platelet Volume 7.8 FL Neutrophils (%) (Auto) 58.6 % Lymphocytes (%) (Auto) 31.3 % Monocytes (%) (Auto) 7.0 % Eosinophils (%) (Auto) 2.5 % Basophils (%) (Auto) 0.6 % Neutrophils # (Auto) 4.1 TH/MM3 Lymphocytes # (Auto) 2.2 TH/MM3 Monocytes # (Auto) 0.5 TH/MM3 Eosinophils # (Auto) 0.2 TH/MM3 Basophils # (Auto) 0.0 TH/MM3 CBC Comment DIFF FINAL Differential Comment Blood Urea Nitrogen 11 MG/DL Creatinine 0.91 MG/DL Random Glucose 261 MG/DL Total Protein 6.9 GM/DL Albumin 3.4 GM/DL Calcium Level 9.3 MG/DL Alkaline Phosphatase 95 U/L Aspartate Amino Transf (AST/SGOT) 18 U/L Alanine Aminotransferase (ALT/SGPT) 40 U/L Total Bilirubin 0.3 MG/DL Sodium Level 138 MEQ/L Potassium Level 4.0 MEQ/L Chloride Level 102 MEQ/L Carbon Dioxide Level 22.7 MEQ/L Anion Gap 13 MEQ/L Estimat Glomerular Filtration Rate 86 ML/MIN Labs reviewed. Vitals/IOs Vital Signs Date Time Temp Pulse Resp B/P (MAP) Pulse Ox O2 Delivery O2 Flow Rate FiO2 01/23/17 05:30 97.6 95 18 114/73 (87) 95 01/20/17 18:58 Room Air Intake and Output 01/23/17 01/23/17 01/23/17 07:59 15:59 23:59 Intake Total 240 ml 0 ml Balance 240 ml 0 ml Assessment & Plan Problem List: (1) Schizoaffective disorder ICD Codes: F25.9 - Schizoaffective disorder, unspecified Status: Acute Assessment & Plan Initiate Invega Sustenna 234 mg IM. Plan for booster dose prior to discharge next week after interval recommended by glass pulverizer equipment operator. Plan to taper and discontinue oral Risperdal as extended oral supplementation is not required with Invega Sustenna. Continue Depakote as ordered and plan to check a Depakote and ammonia level tomorrow. Appreciate hospitalist input. Continue to monitor on the inpatient unit. Continue other medications and care as ordered. Justification for Cont. Inpt. Medication change. High risk for decompensation in less restrictive environment. Discharge Planning Anticipate discharge middle of next week. Request HC Surrog/Guard Advoc?: No Problem Qualifiers (1) Schizoaffective disorder: Qualified Codes: F25.0 - Schizoaffective disorder, bipolar type Marty Crane MD Jan 23, 2017 13:28
[2017-01-23] MEDS ORDERED: PALIPERIDONE PALMITATE 234 MG/1.5 ML SYRINGE IM ONE (14:00)
[2017-01-23 18:19] VITALS: BP 153/86; PULSE 109; RESP 18; TEMP 98.1; O2SAT 96
[2017-01-23] MEDS: REMOVE OLD NICOTINE PATCH T-DERMAL SCH (20:55)
[2017-01-24 05:47] VITALS: BP 108/60; PULSE 92; RESP 16; TEMP 97.8; O2SAT 96
[2017-01-24] MEDS: INSULIN NovoLIN REGULAR SUPPLEMENTAL SCALE SQ SCH ×4 (06:28→21:07)
[2017-01-24] MEDS: DIVALPROEX DR 500 MG TABEC PO SCH ×2 (08:40→21:12)
[2017-01-24] MEDS: metFORMIN HCL 500 MG TAB PO SCH ×2 (08:40→17:55)
[2017-01-24] MEDS: risperiDONE 1 MG TAB PO SCH ×2 (08:41→21:12)
[2017-01-24] MEDS: CELECOXIB 100 MG CAP PO SCH ×2 (08:41→21:00)
[2017-01-24] MEDS: DOCUSATE SODIUM 50 MG/SENNA 8.6 MG TAB PO SCH (08:41)
[2017-01-24] MEDS: PANTOPRAZOLE SOD 40 MG DELAYED RELEASE TAB PO SCH (08:41)
[2017-01-24] MEDS: ATORVASTATIN 20 MG TAB PO SCH (08:41)
[2017-01-24] MEDS: SALMETEROL XINAFOATE 50 MCG DISKUS INH SCH ×2 (08:42→21:10)
[2017-01-24] MEDS: NICOTINE 21 MG/24 HR PATCH T-DERMAL SCH (08:42)
--- NOTE | 2017-01-24 08:46 | HHI.PR ---
Subjective Remarks Follow-up visit DM 2, HTN, chronic back pain, arthritis, COPD. Patient seen and examined today lying in bed. States he's been doing better. Complaints of arthritic pain in bilateral hands and wrists. States he is unable to grab smaller objects because he is unable to close his electroplater. Also complains of midepigastric pain, burning sensation when he eats. Complains of some constipation. Otherwise, denies SOB/ dyspnea. Denies chest pain, palpitations, headaches, dizziness. Denies fevers, chills, n/v/d. Denies dysuria. Objective Vitals Vital Signs Date Time Temp Pulse Resp B/P (MAP) Pulse Ox O2 Delivery O2 Flow Rate FiO2 01/24/17 05:47 97.8 92 16 108/60 (76) 96 01/23/17 18:19 98.1 109 18 153/86 (108) 96 I/O 01/23/17 01/23/17 01/23/17 01/24/17 01/24/17 01/24/17 07:00 15:00 23:00 07:00 15:00 23:00 Intake Total 240 ml 240 ml Balance 240 ml 240 ml Intake Oral 240 ml 240 ml Result Diagram: 01/22/17 1544 01/22/17 1544 Objective Remarks GENERAL: This is an obese, well-developed patient, in no apparent distress. SKIN: Warm and dry HEENT: Normocephalic. Pupils equal round and reactive. Nose without bleeding. Airway patent. NECK: Trachea midline. No JVD. Supple. CARDIOVASCULAR: Regular rate and rhythm without murmurs, gallops, or rubs. RESPIRATORY: Clear to auscultation. Breath sounds equal bilaterally. No wheezes , rales, or rhonchi. GASTROINTESTINAL: Abdomen soft, nondistended. Bowel Sounds normoactive x4. Mild tenderness midepigastric region. MUSCULOSKELETAL: Extremities without clubbing, cyanosis, or edema. NEUROLOGICAL: Awake and alert. Oriented to place, person. No focal neuro deficit. Moves all extremities. Normal speech. A/P Assessment and Plan Patient is a 56-year-old male with primary medical history of DM 2, hypertension, chronic back pain, depression, anxiety, COPD came into the hospital for suicidal and homicidal ideation evaluation. He is admitted to inpatient psychiatry for further evaluation. Consulted for medical management. Depression, anxiety, suicidal and homicidal ideation - Managed by psychiatry team COPD, not in exacerbation - Continue Serevent BID, Albuterol - Monitor respiratory status - incentive spirometry - No complaints of shortness of breath and dyspnea. DM 2 - Hemoglobin A1c 10.6 - Levemir 20 mg subcutaneous twice a day. - Metformin 1000mg BID - Monitor Accu-Cheks. Monitor for hypoglycemia - Improved Chronic back pain Osteo-Arthritis - Continue Celebrex. Naprosyn when necessary - C/o painful hand joints and describes limited ROM. - PT/OT requested to work on ROM - Encourage use of NSAIDs HTN, history - Not on any antihypertensives. - Monitor BP trend. Improved. - Lipid panel are within normal History of tobacco abuse - Has quit smoking 5 years ago. Dyspepsia, GERD - Pantoprazole 40 mg daily Constipation - MiraLAX daily, MOM when necessary DVT prop ambulatory Full code Discussed with patient, nursing, Dr. Hernando Loomis from Hospitalist standpoint. We will sign off. Reconsult as needed. Nelia Dalton Jan 24, 2017 08:46
[2017-01-24] MEDS: INSULIN DETEMIR 100 UNITS/ML VIAL SQ SCH ×2 (08:47→21:05)
--- NOTE | 2017-01-24 10:02 | HHI.PYPN ---
Subjective Remarks Patient seen and examined with nurse. Chart reviewed. Case discussed with nursing staff. No behavioral issues overnight. Patient received Invega Sustenna yesterday without incident. On my examination today, the patient denies any suicidal or homicidal ideation. Denies any audiovisual hallucinations. He says that he has spoken with some friends who have offered him a room for $475 a month, and he thinks he might prefer this to [place] where he would have to give a more significant fraction of his disability check. I have asked him to consider whether he might not do better in a more structured living environment, even if it is somewhat more expensive. Denies side effects from medications. No physical complaints besides chronic low back pain, for which he is requesting additional medication. Review of Systems Except as stated in HPI: all other systems reviewed are Neg Objective Alert: Yes [place]: Person, Place, Date Mood: Calm Affect: Appropriate, Euthymic Memory Intact: Comment (remains intact) Hallucinations: Other (no hallucinations) Delusions: No Delusion Type: Other (no delusional material) Suicidal: Ideation (denies SI) Homicidal: Ideation (denies HI) Insight/Judgment poor Remarks No motor abnormalities noted Labs Labs reviewed. Depakote level within the therapeutic range. Ammonia level not elevated. Vitals/IOs Vital Signs Date Time Temp Pulse Resp B/P (MAP) Pulse Ox O2 Delivery O2 Flow Rate FiO2 01/24/17 05:47 97.8 92 16 108/60 (76) 96 01/20/17 18:58 Room Air Assessment & Plan Problem List: (1) Schizoaffective disorder ICD Codes: F25.9 - Schizoaffective disorder, unspecified Status: Acute Assessment & Plan Plan to administer booster dose of Invega Sustenna after the weekend. Continue current psychotropics as ordered. Likely will discontinue oral Risperdal on discharge. Lidoderm patch for back pain. Continue other medications and care as ordered. Justification for Cont. Inpt. Anticipated med changes. Risk for decompensation in the meantime. Discharge Planning Anticipate discharge beginning of next week. Request HC Surrog/Guard Advoc?: No Problem Qualifiers (1) Schizoaffective disorder: Qualified Codes: F25.0 - Schizoaffective disorder, bipolar type Marty Crane MD Jan 24, 2017 10:02
[2017-01-24] MEDS: LIDOCAINE HCL 5% PATCH T-DERMAL SCH (14:03)
[2017-01-24 18:16] VITALS: BP 122/72; PULSE 108; RESP 17; TEMP 97.7; O2SAT 94
[2017-01-24] MEDS: REMOVE OLD NICOTINE PATCH T-DERMAL SCH (21:00)
[2017-01-24] MEDS: REMOVE OLD LIDOCAINE PATCH T-DERMAL SCH (21:00)
[2017-01-25 06:14] VITALS: BP 105/68; PULSE 93; RESP 18; TEMP 97.7; O2SAT 97
[2017-01-25] MEDS: INSULIN NovoLIN REGULAR SUPPLEMENTAL SCALE SQ SCH ×4 (07:00→21:48)
[2017-01-25] MEDS: NICOTINE 21 MG/24 HR PATCH T-DERMAL SCH (09:00)
[2017-01-25] MEDS: INSULIN DETEMIR 100 UNITS/ML VIAL SQ SCH ×2 (09:00→21:00)
[2017-01-25] MEDS: CELECOXIB 100 MG CAP PO SCH ×2 (09:06→21:54)
[2017-01-25] MEDS: DOCUSATE SODIUM 50 MG/SENNA 8.6 MG TAB PO SCH (09:06)
[2017-01-25] MEDS: ATORVASTATIN 20 MG TAB PO SCH (09:06)
[2017-01-25] MEDS: PANTOPRAZOLE SOD 40 MG DELAYED RELEASE TAB PO SCH (09:06)
[2017-01-25] MEDS: metFORMIN HCL 500 MG TAB PO SCH ×2 (09:07→17:56)
[2017-01-25] MEDS: LIDOCAINE HCL 5% PATCH T-DERMAL SCH (09:07)
[2017-01-25] MEDS: risperiDONE 1 MG TAB PO SCH ×2 (09:07→21:55)
[2017-01-25] MEDS: SALMETEROL XINAFOATE 50 MCG DISKUS INH SCH ×2 (09:07→21:00)
[2017-01-25] MEDS: DIVALPROEX DR 500 MG TABEC PO SCH ×2 (09:07→21:55)
--- NOTE | 2017-01-25 15:09 | HHI.PYPN ---
Subjective Remarks Patient was seen and case discussed with nursing. Mood today is "weak, tired." No visitors or phone calls. Says his hallucinations are gone. He is thinking about her stressors in the future. He is seen drawing mondragon in the dayroom. Affect is blunted. Denies suicidal or homicidal ideation intent or plan. Compliant with medications Objective Alert: Yes [place]: Person, Place, Date Mood: Depressed Affect: Blunted Memory Intact: Comment (remains intact) Hallucinations: Other (no hallucinations) Delusions: No Delusion Type: Other (no delusional material) Suicidal: Ideation (denies SI) Homicidal: Ideation (denies HI) Insight/Judgment Fair Vitals/IOs Vital Signs Date Time Temp Pulse Resp B/P (MAP) Pulse Ox O2 Delivery O2 Flow Rate FiO2 01/25/17 06:14 97.7 93 18 105/68 (80) 97 Assessment & Plan Problem List: (1) Schizoaffective disorder ICD Codes: F25.9 - Schizoaffective disorder, unspecified Status: Acute Assessment & Plan Continue current treatment plan Justification for Cont. Inpt. Patient will decompensate in a less restrictive setting Request HC Surrog/Guard Advoc?: No Problem Qualifiers (1) Schizoaffective disorder: Qualified Codes: F25.0 - Schizoaffective disorder, bipolar type Valdemar Espinoza DO Jan 25, 2017 15:09
[2017-01-25] MEDS: REMOVE OLD NICOTINE PATCH T-DERMAL SCH (21:00)
[2017-01-25] MEDS: REMOVE OLD LIDOCAINE PATCH T-DERMAL SCH (21:00)
[2017-01-26 06:02] VITALS: BP 101/65; PULSE 88; RESP 18; TEMP 97.8; O2SAT 97
[2017-01-26] MEDS: INSULIN NovoLIN REGULAR SUPPLEMENTAL SCALE SQ SCH ×4 (06:32→21:26)
[2017-01-26] MEDS: SALMETEROL XINAFOATE 50 MCG DISKUS INH SCH ×2 (09:00→21:14)
[2017-01-26] MEDS: LIDOCAINE HCL 5% PATCH T-DERMAL SCH (09:00)
[2017-01-26] MEDS: NICOTINE 21 MG/24 HR PATCH T-DERMAL SCH (09:00)
[2017-01-26] MEDS: metFORMIN HCL 500 MG TAB PO SCH ×2 (09:48→18:10)
[2017-01-26] MEDS: DIVALPROEX DR 500 MG TABEC PO SCH ×2 (09:48→21:15)
[2017-01-26] MEDS: PANTOPRAZOLE SOD 40 MG DELAYED RELEASE TAB PO SCH (09:48)
[2017-01-26] MEDS: risperiDONE 1 MG TAB PO SCH ×2 (09:48→21:15)
[2017-01-26] MEDS: ATORVASTATIN 20 MG TAB PO SCH (09:49)
[2017-01-26] MEDS: DOCUSATE SODIUM 50 MG/SENNA 8.6 MG TAB PO SCH (09:49)
[2017-01-26] MEDS: CELECOXIB 100 MG CAP PO SCH ×2 (09:49→21:15)
[2017-01-26] MEDS: INSULIN DETEMIR 100 UNITS/ML VIAL SQ SCH ×2 (09:50→21:25)
--- NOTE | 2017-01-26 13:37 | HHI.PYPN ---
Subjective Remarks Patient was seen and case discussed with nursing. Patient is pleasant and cooperative with exam. He is social and compliant with his medications. Mood is "really good." He is asking about discharge tomorrow. Objective Alert: Yes [place]: Person, Place, Date Mood: Calm Affect: Appropriate Memory Intact: Comment (remains intact) Hallucinations: Other (no hallucinations) Delusions: No Delusion Type: Other (no delusional material) Suicidal: Ideation (denies SI) Homicidal: Ideation (denies HI) Insight/Judgment Improving Vitals/IOs Vital Signs Date Time Temp Pulse Resp B/P (MAP) Pulse Ox O2 Delivery O2 Flow Rate FiO2 01/26/17 06:02 97.8 88 18 101/65 (25) 97 Assessment & Plan Problem List: (1) Schizoaffective disorder ICD Codes: F25.9 - Schizoaffective disorder, unspecified Status: Acute Assessment & Plan Continue current treatment plan Justification for Cont. Inpt. Patient would decompensate in a less restrictive setting Request HC Surrog/Guard Advoc?: No Problem Qualifiers (1) Schizoaffective disorder: Qualified Codes: F25.0 - Schizoaffective disorder, bipolar type Valdemar Espinoza DO Jan 26, 2017 13:37
[2017-01-26] MEDS: REMOVE OLD LIDOCAINE PATCH T-DERMAL SCH (21:00)
[2017-01-26] MEDS: REMOVE OLD NICOTINE PATCH T-DERMAL SCH (21:00)
[2017-01-26 22:58] VITALS: BP 127/84; PULSE 111; RESP 18; TEMP 97.8; O2SAT 97
[2017-01-27 05:31] VITALS: BP 114/66; PULSE 91; RESP 18; TEMP 97.9; O2SAT 95
[2017-01-27] MEDS: INSULIN NovoLIN REGULAR SUPPLEMENTAL SCALE SQ SCH ×2 (06:12→10:59)
[2017-01-27] MEDS: INSULIN DETEMIR 100 UNITS/ML VIAL SQ SCH (08:18)
[2017-01-27] MEDS: PANTOPRAZOLE SOD 40 MG DELAYED RELEASE TAB PO SCH (08:24)
[2017-01-27] MEDS: CELECOXIB 100 MG CAP PO SCH (08:24)
[2017-01-27] MEDS: DOCUSATE SODIUM 50 MG/SENNA 8.6 MG TAB PO SCH (08:24)
[2017-01-27] MEDS: DIVALPROEX DR 500 MG TABEC PO SCH (08:24)
[2017-01-27] MEDS: metFORMIN HCL 500 MG TAB PO SCH (08:24)
[2017-01-27] MEDS: ATORVASTATIN 20 MG TAB PO SCH (08:24)
[2017-01-27] MEDS: risperiDONE 1 MG TAB PO SCH (08:25)
[2017-01-27] MEDS ORDERED: PALIPERIDONE PALMITATE 156 MG/ML SYRINGE IM ONE (09:00)
[2017-01-27] MEDS: SALMETEROL XINAFOATE 50 MCG DISKUS INH SCH (09:00)
[2017-01-27] MEDS: LIDOCAINE HCL 5% PATCH T-DERMAL SCH (09:00)
[2017-01-27] MEDS: NICOTINE 21 MG/24 HR PATCH T-DERMAL SCH (09:00)
[2017-01-27] MEDS: REMOVE OLD NICOTINE PATCH T-DERMAL SCH (10:43)
[2017-01-27] MEDS ORDERED: DIVA500T PO (11:17)
[2017-01-27] MEDS ORDERED: LEVEMIR SQ (11:17)
[2017-01-27] MEDS ORDERED: PALI156P IM (11:17)
--- NOTE | 2017-01-27 11:17 | HHI.DS ---
Psychiatry Discharge Summary Inpatient Psychiatric care?: Yes Advance Directive: No Mental Health AdvanceDirective: No Health Care Proxy: No Admission Admission Date Jan 20, 2017 at 21:25 Admission Diagnosis: (1) Schizoaffective disorder ICD Code: F25.9 - Schizoaffective disorder, unspecified Brief History Mr. Brock is a 57-year-old male with a history of schizoaffective disorder who presents under a Dolan act from corporate scheduler for [employer]. Reviewing EMR I note that the patient was admitted here under Dr. Tsang in October of this year, stabilized on Zyprexa and Depakote at that time. I saw the patient in consultation for a second opinion at that time. Patient seen and examined with nurse. Chart reviewed. Case discussed with nursing staff. On my examination today, the patient reports some medication nonadherence because he forgets to take his medications. He says that he has been feeling quite depressed. He has been experiencing auditory hallucinations "real loud." He describes these voices as a crowd that converse amongst themselves. No reported command auditory hallucinations. He does not describe any visual hallucinations. Sleep is reportedly poor. Denies suicidal ideation at this time but admits to suicide attempts since he was discharged from the hospital last time. 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 He understands that injuring Jn would result in legal sanction, and this ideation seems to be driven by a desire for revenge not from any psychotic or other psychiatric symptomatology. Denies any urge to hurt anyone on the inpatient psychiatric unit and contracts for safety, saying that he will tell the nursing staff if this changes. No delusions elicited. Remainder of the psychiatric ROS is negative. Complains of arthritic pain but otherwise has no physical complaints. Past psychiatric history: Patient has a history of seasonal affective disorder. He denies a history of interval psychiatric admissions since he was discharged from the unit here earlier in the year. He does endorse an interval suicide attempt by overdose on aspirin, although he did not seek medical attention for this he tells me; he says he just had a stomachache for a few days. Tobacco Use In Past 30 Days: No Tobacco Past 30 Days Alcohol Use: Never Hospital Course The patient was admitted to a locked, inpatient psychiatric unit. A general medical consultation was obtained. Appropriate precautions were in place throughout patient's hospital stay. The patient was seen and examined daily on the unit by psychiatry and also visited by the counselor. Psychotropic medications were adjusted. The patient was started on long-acting injectable Invega Sustenna. Patient tolerated medications well without side effects. Patient had resolution of his presenting psychiatric symptomatology. There was no evidence of any suicidal or homicidal behavior on the inpatient unit. The patient remained in good behavioral control. Efforts were made to place the patient in an assisted living setting, but the patient ultimately decided to stay with friends as he did not want to give over that much of his disability check for housing. On the day of discharge: Patient seen and examined. Chart reviewed. Case discussed with nursing staff. No behavioral issues noted overnight. On my examination today, the patient is requesting discharge from the inpatient psychiatric unit. He denies any suicidal or homicidal ideation, intent or plan on direct questioning and contracts for safety. No HI against Jn. He is future oriented and excited to begin living with his friends. Mood is described as happy. No depressive or hypomanic/manic symptoms. Denies audiovisual hallucinations. No delusional beliefs. Denies side effects from medications. No physical complaints beyond some chronic back pain. Weighing the relevant factors and based on the available evidence, I nurses' aide to a reasonable degree of medical certainty that the patient is at low imminent risk of harm to self or others from a mental illness as defined under the Dolan act, and his level of function is adequate for outpatient care. Patient has maximized benefit from this inpatient psychiatric hospital stay and will be discharged today with psychiatric follow-up as arranged by counselor. Patient is also to follow-up with primary care. I counseled the patient to abstain from drugs of abuse. I counseled the patient regarding warning signs for need to return to the psychiatric emergency room as part of a general safety plan. I have provided psychoeducation regarding the need to follow up for subsequent Invega Sustenna injections. Since the patient's blood sugars were managed without Invokana while in house, I have ordered this medication held on discharge. Results Blood Pressure 114 / 66 Vital Signs Date Time Temp Pulse Resp B/P (MAP) Pulse Ox O2 Delivery O2 Flow Rate FiO2 01/27/17 05:31 97.9 91 18 114/66 (82) 95 Laboratory Results Test 01/21/17 11:46 01/24/17 11:00 Cholesterol Level 167 MG/DL (120-200) HDL Cholesterol 37.0 MG/DL (40.0-60.0) Hemoglobin A1c 10.6 % (4.3-6.0) LDL Cholesterol 88 MG/DL (0-99) Triglycerides Level 212 MG/DL (42-150) Valproic Acid (Depakene) Level 53 MCG/ML (50-100) Summary of Procedures None done Imaging None done Pending results at discharge: No Medications # of Antipsychotic meds at D/C: 1 Approp Antipsych med options 1 - Minimum of three failed multiple trials of monotherapy. 2 - Documented plan to taper to monotherapy due to previous use of multiple meds OR cross-taper in progress at D/C. 3 - Documentation of augmentation of Clozapine. 4 - Justification other than those listed in allowable values 1-3, document here : Discharge Discharge Date: Jan 27, 2017 Discharge Diagnosis: (1) Schizoaffective disorder Diagnosis: Principal (stabilized) ICD Code: F25.9 - Schizoaffective disorder, unspecified Status: Acute Mental Status Exam at Disch Patient is in hospital gown. Patient is well groomed. Patient is awake and alert and oriented person in hospital at least. No evidence of delirium. No motor abnormalities appreciated. Speech is within normal limits for rate, tone , volume. Language and fund of knowledge average. Focus and concentration intact. Memory grossly intact on clinical exam. Mood is good. Affect is full and reactive. Thought processes linear. No delusions elicited. Denies audiovisual hallucinations and does not appear internally stimulated. Denies suicidal or homicidal ideation, intent, or plan and contracts for safety. Insight and judgment seem fair. Pt Condition on Discharge: Stable Discharge Disposition: Discharge Home Discharge Instructions Diet Instructions: Diabetic Diet Activities you can perform: Weight Bearing as [place] Scheduled Appointment: as per counselor's notes New Medications: Paliperidone Palmitate Inj (Invega Sustenna Inj) 156 Mg/Ml Inj 156 MG IM Q28D for Mental Health, #1 VIAL 0 Refills This dose of Invega Sustenna is due on 02/24/2017. Divalproex DR (Divalproex DR) 500 Mg Tabdr 500 MG PO BID for Mental Health for 15 Days, TAB 1 Refill Insulin Detemir Inj (Levemir Inj) 1,000 unit/ 10 ML Vial 20 UNITS SQ Q12HR for Blood Sugar Management for 15 Days, INJECTION 1 Refill Do not mix with any other Insulin. Continued Medications: Atorvastatin (Atorvastatin) 20 Mg Tab 20 MG PO DAILY for health, #30 TAB 0 Refills Celecoxib (Celebrex) 100 Mg Cap 100 MG PO BID for Pain Management, #30 CAP 0 Refills Metformin (Glucophage) 500 Mg Tab 1000 MG PO 2 bidpc for health, #120 TAB 3 Refills Pantoprazole (Pantoprazole) 40 Mg Tab 40 MG PO DAILY for health, #30 TAB 0 Refills Salmeterol Inh (Serevent Diskus Inh) 50 Mcg/Act Aero 50 MCG INH BID for health, #60 INHALER 0 Refills Sennosides-Docusate Sodium (Senna Plus 8.6-50 mg) 1 Tab Tab 2 TAB PO DAILY for health, #60 TAB 0 Refills Discontinued Medications: Canagliflozin (Invokana) 300 Mg Tab 300 MG PO DAILY for Blood Sugar Management, #30 TAB 3 Refills Take before 1st meal of day. Divalproex ER (Depakote ER) 500 Mg Brody 500 MG PO BID for health, #60 TAB 0 Refills Insulin Detemir Inj (Levemir Inj) 1,000 unit/ 10 ML Vial 30 UNITS SQ BID for health, #1 VIAL Olanzapine (Olanzapine) 5 Mg Tab 5 MG PO BID for health, #60 TAB 0 Refills Discharge Time <= 30 minutes Discharge/Advance Care Plan Health Problems: (1) Schizoaffective disorder Goals to promote your health * To prevent worsening of your condition and complications * To maintain your health at the optimal level Directions to meet your goals Take your medications as prescribed Follow your dietary instruction Follow activity as directed Keep your appointments as scheduled Take your immunizations and boosters as scheduled If your symptoms worsen call your PCP, if no PCP go to Urgent Care Center or Emergency Room For 16/12 questions related to your inpatient stay or results of tests pending at discharge, please contact Dr. Marty Crane at Smoking is Dangerous to Your Health. Avoid second hand smoking Problem Qualifiers (1) Schizoaffective disorder: Qualified Codes: F25.0 - Schizoaffective disorder, bipolar type Marty Crane MD Jan 27, 2017 11:17
[2017-02-19] MEDS ORDERED: OLAN7.5T PO (09:00)
[2017-02-19] MEDS ORDERED: CANA100T PO (09:00)
[2017-02-19] MEDS ORDERED: HYDR50CA PO (09:00)
[2017-02-19] MEDS ORDERED: SITA1TAB2 PO (09:00)
[2017-02-19] MEDS ORDERED: VENTAER INH (09:00)
[2017-02-19] MEDS ORDERED: DULO1CAP PO (09:00)
[2017-03-03] MEDS ORDERED: REST0.05 EACH EYE (10:10)
[2017-03-05] MEDS ORDERED: SENN1TAB PO (09:11)
[2017-03-05] MEDS ORDERED: PANT40TA3 PO (09:11)
[2017-03-05] MEDS ORDERED: VENTAER INH (09:11)
[2017-03-05] MEDS ORDERED: METF500 PO (09:11)
[2017-03-05] MEDS ORDERED: REST0.05 EACH EYE (09:11)
[2017-03-05] MEDS ORDERED: CANA100T PO (09:11)
[2017-03-05] MEDS ORDERED: LEVEMIR SQ (09:11)
[2017-03-05] MEDS ORDERED: CELE100C PO (09:11)
[2017-03-05] MEDS ORDERED: DULO1CAP PO (09:11)
[2017-03-05] MEDS ORDERED: SALM50I INH (09:11)
[2017-03-05] MEDS ORDERED: DIVA500T PO (09:11)
[2017-03-05] MEDS ORDERED: ATOR20TA15 PO (09:11)
[2017-03-11] MEDS ORDERED: ALBUAER3 INH (11:18)
== END 2017-01-27 13:35 | disposition home or self-care (01) | DRG 885 ==
LOC: NEDAMB 13:07 → NEDA 21:25 → H260 22:18
PROVIDERS: ADMIT Psychiatry & Neurology Psychiatry; ATTEND Psychiatry & Neurology Psychiatry
DX: F25.9 Schizoaffective disorder, unspecified (principal); E11.9 Type 2 diabetes mellitus without complications; I10 Essential (primary) hypertension; Z79.4 Long term (current) use of insulin; Z79.84 Long term (current) use of oral hypoglycemic drugs; G89.29 Other chronic pain; M54.9 Dorsalgia, unspecified; K21.9 Gastro-esophageal reflux disease without esophagitis; J44.9 Chronic obstructive pulmonary disease, unspecified; Z91.19 Patient's noncompliance with other medical treatment and regimen; Z87.891 Personal history of nicotine dependence; K59.00 Constipation, unspecified
CPT/HCPCS: 80048; 80053; 80061; 80076; 80164; 80307; 82140; 82948; 83036; 85025; 94150; 96372; J2426

== ENCOUNTER → 2017-10-30 | Day surgery (SDC) | payer MEDICAID ==
[~2017-10-30] VITALS: Ht 172.7 cm; Wt 110.0 kg
[~2017-10-30] MED LIST changes: +ALBUAER3 INH; +BUPIVACAINE HCL PF 0.5% 10 ML VIAL ONE; +CANA100T PO; -CANA300T PO; +CEPH-460 PO; +CHLORHEXIDINE GLUCONATE 2 % 1 PACK (2 CLOTHS) TOPICAL PRN; -CYAN1000P IM; -DEPA500T3 PO; +DIVA500T PO; +DULO1CAP PO; +HYDR-3288 PO; +INSULIN HUMAN REGULAR 1,000 UNITS/10 ML VIAL SQ PRN; +LACTATED RINGER'S 1000 ML IV PRN; -LANTUS2P SQ; +LIDOCAINE HCL 2% 50 ML VIAL ONE; +METOPROLOL TARTRATE 25 MG TAB PO PRN; +MIDAZOLAM HCL 2 MG/2 ML VIAL ONE; +NEOMYCIN/POLYMYXIN 1 ML G.U. IRRIGANT ONE; -OLAN5TAB PO; +POVIDONE IODINE 5% (ANTISEPSIS KIT) 4 APPLICATIONS EACH NARE PRN; +REST0.05 EACH EYE; +SODIUM CHLORID 0.9% 500 ML IV PRN; +TRAM50TA PO; +ceFAZolin 2 GM/DEX PREMIX 50 ML IV SCH
--- NOTE | 2017-10-30 10:09 | MP ---
cc: Pineda Sanchez MD DATE OF OPERATION: 10/30/2017 PREOPERATIVE DIAGNOSIS: Left carpal tunnel syndrome. PROCEDURE PERFORMED: Left open carpal tunnel release. SURGEON: Pineda Sanchez III, TOURNIQUET TIME: 12 minutes at 200 mmHg. INDICATIONS: The patient was brought to the operating room, placed on the operating table. After the correct site and side of surgery were verified by members of each team in the room multiple times including the patient and myself and after adequate preoperative markings and preoperative written consent were verified by everyone, and after adequate preoperative timeout was performed to everyone's satisfaction and, after adequate IV sedation had been achieved, the left upper extremity was prepped and draped in traditional sterile surgical fashion. A 50:50 mixture of 2% plain lidocaine and 0.5% plain Marcaine was infiltrated in the skin and subcutaneous tissue at the base of the palm, into the carpal tunnel. Limb was exsanguinated with Bang wrap. A highly placed, well-padded axillary tourniquet was inflated to 200 mmHg for a total of 9 minutes. A longitudinally oriented incision at the base of the palm was made and carried down through skin and subcutaneous tissue. The palmar fascia was retracted in opposite directions. The transverse carpal ligament was identified and transected it to the ulnar side of its midline from its proximal-most to its distal-most extent. The carpal tunnel contents were then completely released under obvious compression and had noticeable rebound upon release. There was no evidence of any other anatomic abnormalities. There was no evidence of any mass effect. Thorough irrigation was performed with 1 liter's worth of saline. The skin edges were reapproximated using a running 4-0 nylon suture. The hand and arm were thoroughly cleansed and dried, Betadine and Adaptic dressing was applied on top of the wound, followed by a bulky soft dressing and a circumferential dressing after that. The capillary refill was less than 2 seconds in all fingertips after releasing the tourniquet. The patient was awakened from anesthesia and transported to the Postanesthesia Care Unit awake and in stable condition at the end of the case. Sponge, needle and instrument counts were correct at the end of the case as reported by the nurses in the room. MD LORI Sanderson/LIDIA , 09:47 AM , 10:08 AM
[2017-10-30 10:35] VITALS: BP 128/80; PULSE 75; RESP 16; TEMP 97.7; O2SAT 94
== END | disposition home or self-care (01) ==
LOC: PHSDC 06:59
PROVIDERS: ATTEND Orthopaedic Surgery Hand Surgery
DX: G56.02 Carpal tunnel syndrome, left upper limb (principal); I10 Essential (primary) hypertension; E11.9 Type 2 diabetes mellitus without complications
CPT/HCPCS: 01810; 64721; 82948; J0690; J2250; J3010; J7120